=== PATIENT | female | born 1945 | race Caucasian/White ===

== ENCOUNTER 2020-05-02 09:24 | Inpatient (IN) ==
[2020-05-02] MEDS ORDERED: SODIUM CHLORIDE 0.9% 250 ML IV PRN (09:31)
[2020-05-02] MEDS ORDERED: PANTOprazole 40 MG in SYRINGE 0 ML IV ONE ×2 (09:31→11:15)
--- NOTE | 2020-05-02 09:52 | XRay Report ---
XR chest 1V portable CLINICAL HISTORY: weakness COMPARISON STUDY: Chest radiograph January 27, 2008. FINDINGS: There is no pneumothorax. Small to moderate right and small left pleural effusions are note d. Extensive left lower lung airspace opacity is noted. There is also right basilar opacity. There is pulmonary vascular congestion. Cardiomediastinal silhouette is stable. IMPRESSION: 1. Small to moderate right and small left pleural effusions. Bibasilar airspace opacities, greater on the left. The findings could reflect atelectasis or consolidation. Radiographic follow-up is recomme nded. 2. Pulmonary vascular congestion. ACT 112: Negative or not required by law. Electronically signed by: Rajesh Johnson M.D. 05/02/2020 9:51 AM
[2020-05-02 09:58] LABS: Hemoglobin 5.2 g/dL (12.0-16.0); Mean Corpuscular Hgb Conc 30.6 g/dL (32-36); Mean Corpuscular Volume 101.2 fL (80-100); Mean Platelet Volume 8.3 fL (7.4-10.4); Nucleated RBC # (auto) 0.08 K/uL (0-0); Nucleated RBC % (auto) 0.4 %; Platelet Count 408 K/uL (130-400); RDW Standard Deviation 63.3 fL (36.4-46.3); Red Blood Count 1.68 M/uL (4.2-5.4); White Blood Count 18.44 K/uL (4.8-10.8)
--- NOTE | 2020-05-02 09:59 | Emergency Department Note ---
Impression & Plan Acute upper gastrointestinal bleeding, Anemia ED Provider Note NAME: FREDY HELMS AGE: 74 SEX: F : 1945 ARRIVES VIA: Ambulance INFORMANT: Patient, ED PROVIDER(S): Zack Interiano DO CHIEF COMPLAINT: Anemia HPI: The patient is a 74-year-old female who presented to the emergency department from inpatient rehab for an evaluation of severe anemia and generalized weakness. The patient has noticed dropping hemoglobin by outpatient laboratory draws. She states that she did not have a rectal exam and reported no rectal bleeding. She is postop from a hysterectomy. She denies having any abdominal pain nausea or vomiting. She does complain of significant dyspnea on exertion. She denies having any fevers or cough. She denies having any unilateral weakness. The patient states her symptoms are moderate. She is wors ened with exertion and notices dyspnea on exertion as well. ROS: See above HPI for pertinent positives & negatives. A total of 10 systems reviewed and were otherwise negative. PAST MEDICAL HISTORY: See Below PAST SURGICAL HISTORY: See Below FAMILY HISTORY: See Below SOCIAL HISTORY: See Below HOME MEDICATIONS: See Below ALLERGIES: See Below VITALS: See Below PHYSICAL EXAMINATION: GENERAL: Patient is awake alert in no acute distress patient is resting comfortably and showing no signs of anxiety EYES: The conjunctivae are clear. The pupils are round and reactive. EARS, NOSE, MOUTH AND THROAT: The nose is without any evidence of any deformity. Mucous membranes are moist. Tongue is midline. NECK: The neck is nontender and supple. RESPIRATORY: Normal respiratory effort is noted there is no evidence of wheezing rhonchi or rales CARDIOVASCULAR: Tachycardic rate with regular rhythm was noted. GASTROINTESTINAL: The abdomen was moderately distended. Postoperative sites are noted in the abdomen. There is no tenderness guarding noted. The abdominal wounds are healing well. Rectal exam revealed black stool which was strongly positive. MUSCULOSKELETAL/EXTREMITIES: There is no evidence of gross deformity full range of motion is noted in the hips and shoulders. SKIN: There is no obvious evidence of any rash. Pedal edema was noted bilaterally. NEUROLOGIC: Patient is awake alert and oriented x3. MEDICAL DECISION MAKING: The patient is a 74-year-old female who presented to the emergency department for an evaluation of generalized weakness. She has been noted to have falling hemoglobins on serial examinations at [facility] where the patient is currently out for inpatient rehab. The patient was sent to the emergency department today because of a significant drop in hemoglobin. Rectal exam revealed black stool which was strongly heme positive. She has a known history of peptic ulcer disease. The patient was ordered blood transfusion in the emergency department. I discussed the patient's laboratory and radiographic studies with her. I also discussed this case with the on-call [facility] hospitalist. The patient's abdomen did not appear to be consistent with an acute abdominal process. Her wounds appear to be healing well. Triage Nursing notes reviewed. Prior medical records reviewed Vital Signs: reviewed and remarkable for elevated blood pressure Differential diagnosis: Infection, dehydration, metabolic abnormality, hypo/hyperglycemia, electrolyte disturbance, anemia, hypoxia, cardiac sources, intracerebral event, toxicologic, neurologic, as well as other pathologies. ER treatment provided: See below Diagnostics interpreted by me: ECG: EKG was obtained in the emergency department. My interpretation is sinus tachycardia at 105 bpm. There is no ectopy. Diffuse T wave flattening was noted. This was compared to a tracing from February 142019. The T wave abn ormalities are new compared to the earlier tracing. Cardiac Monitoring: An order was placed for continuous cardiac monitoring. The monitor shows a rate of 115 bpm with sinus tachycardia rhythm. Laboratory studies: As stated above and show below. Imaging studies: See below Consultation(s): I discussed this case with the on-call [facility] hospitalist, Dr. Dominique. ED COURSE: Procedures: none PDMP:reviewed and no issues Critical Care: I have personally spent greater than 55 minutes of critical care time in the direct management of this patient. This includes bedside care, interpretation of diagnostic studies, and testing, discussion with consultants, patient, and family members, and other required patient management activities. This 55 minutes is in excess of all separately billable procedures. Past Med/Surg History Medical History Borderline hypertension no meds Diverticular disease Glaucoma Hyperlipidemia no meds Osteoarthritis Prediabetes Urinary leakage Uterine polyp Vaginal bleeding Surgical History History of bowel resection r/t diverticular disease History of carpal tunnel release Left History of cervical polypectomy History of colostomy History of colostomy reversal History of hysterectomy for cancer History of resection of small bowel Hx of carpal tunnel repair Slow to wake up after anesthesia Family History Father Diabetes Mother Liver cancer Myocardial infarction Other Diverticulitis Denies family history of Ovarian cancer Prostate cancer Breast cancer Colorectal cancer Social History Smoking Status: Former smoker Second Hand Exposure: No; Do You Dip or Chew Tobacco: No; Tobacco Cessation Education Requested by Patient: No Hx Alcohol Use: No Hx Substance Use: No Preferred Language: Mexican Communication Ability: Effective Visual Impairment: No Limitations Hearing Ability: Normal [employer] Required: No Beliefs That Will Affect Care: None marital status: widowe Current Living Situation: Rehab current occupational status: employed Other Information That Helps Us Care for You: No Feels Safe at Home: Yes Childhood Exposure to Second-Hand Smoke: No Dental Care, Regularly: Yes Seatbelt Use: sometimes Sunscreen Use: Yes Allergies Allergies Allergy/AdvReac Type Severity Reaction Status Date / Time morphine Allergy Mild ITCHING Verified 05/02/20 10:21 Penicillins Allergy Mild RASH Verified 05/02/20 10:21 tazobactam Allergy Mild RASH Verified 05/02/20 10:21 Home Meds Home Medications Medication Instructions Recorded Confirmed dorzolamide-timolol 1 drp OPB BID 11/05/19 05/02/20 latanoprost 1 drp OPB QPM 11/05/19 05/02/20 amlodipine 2.5 mg PO DAILY@0900 05/02/20 05/02/20 docusate sodium [Colace] 100 mg PO DAILY@1700 05/02/20 05/02/20 enoxaparin [Lovenox] 100 mg SUBCUT BID 05/02/20 05/02/20 moxifloxacin 400 mg PO QAM 05/02/20 05/02/20 pantoprazole 40 mg PO DAILY@0500 05/02/20 05/02/20 Results & Data (ED) Vital Signs Vital Signs - 24 hr 05/02/20 09:31 05/02/20 09:48 05/02/20 10:00 Temperature 36.8 C Temperature Source Oral Pulse Rate 110 H 107 H 107 H Pulse Rate from SpO2 Sensor 107 H 107 H Respiratory Rate 18 21 19 Respiratory Effort / Characteristics Non-Labored Spontaneous Respiratory Depth Normal Blood Pressure 170/59 H 155/47 H 135/61 Blood Pressure Mean 96 65 89 Pulse Oximetry 94 96 97 Oxygen Delivery Method Room Air Room Air Sepsis Recent Fever Within 48 Hours No Sepsis New/Unexplained Change in Mental Status No Sepsis Action Taken by Nursing No Action Required 05/02/20 10:30 Temperature Temperature Source Pulse Rate 103 H Pulse Rate from SpO2 Sensor 103 H Respiratory Rate 19 Respiratory Effort / Characteristics Respiratory Depth Blood Pressure 146/60 H Blood Pressure Mean 71 Pulse Oximetry 93 Oxygen Delivery Method Sepsis Recent Fever Within 48 Hours Sepsis New/Unexplained Change in Mental Status Sepsis Action Taken by Shelter Medications Current Medication List: was personally reviewed by me Laboratory Data Attestation: I reviewed the patient's lab results. Result diagrams: 05/02/20 09:40 05/02/20 09:40 Lab Results 05/02/20 05/02/20 05/02/20 Range/Units 09:40 09:40 09:40 WBC 18.44 H (4.8-10.8) K/uL RBC 1.68 L (4.2-5.4) M/uL Hgb 5.2 L* (12.0-16.0) g/dL Hct 17.0 L* (37-47) % MCV 101.2 H (80-100) fL MCH 31.0 (25-34) pg MCHC 30.6 L (32-36) g/dL RDW Std Deviation 63.3 H (36.4-46.3) fL RDW Coeff of Susannah 18.0 H (11.5-14.5) % Plt Count 408 H (130-400) K/uL MPV 8.3 (7.4-10.4) fL Immature Gran % (Auto) 1.0 % Neut % (Auto) 80.4 % Lymph % (Auto) 12.1 % Allen % (Auto) 6.3 % Eos % (Auto) 0.1 % Baso % (Auto) 0.1 % Reticulocyte % (Auto) 17.5 H (0.5-2.0) % Neut # (Auto) 14.81 H (1.4-6.5) K/uL Lymph # (Auto) 2.24 (1.2-3.4) K/uL Allen # (Auto) 1.17 H (0.11-0.59) K/uL Eos # (Auto) 0.01 (0-0.5) K/uL Baso # (Auto) 0.02 (0-0.2) K/uL Reticulocyte # 0.29 H (0.02-0.10) 10^6/uL Immature Gran # (Auto) 0.19 H (0.00-0.02) K/uL Absolute Nucleated RBC 0.08 H (0-0) K/uL Nucleated RBC % (auto) 0.4 % Polychromasia 1+ Anisocytosis Present PT 11.3 (9.0-12.0) Seconds INR 1.1 (0.9-1.1) APTT 31.2 H (21.0-31.0) Seconds PTT Ratio 1.1 Sodium (136-145) mmol/L Potassium (3.5-5.1) mmol/L Chloride (98-107) mmol/L Carbon Dioxide (21-32) mmol/L Anion Gap (3-11) BUN (7-18) mg/dl Creatinine (0.6-1.2) mg/dl Est Cr Clr Drug Dosing Est GFR ( Amer) Est GFR (Non-Af Amer) BUN/Creatinine Ratio (10-20) Glucose (70-99) mg/dl Calcium (8.5-10.1) mg/dl Magnesium (1.8-2.4) mg/dl Total Bilirubin (0.2-1) mg/dl AST (15-37) U/L ALT (12-78) U/L Alkaline Phosphatase (45-117) U/L Troponin I (0-0.045) ng/ml Total Protein (6.4-8.2) gm/dl Albumin (3.4-5.0) gm/dl Globulin (2.5-4.0) gm/dl Albumin/Globulin Ratio (0.9-2) TSH (0.300-4.500) uIu/ml Free T4 (0.8-1.6) ng/dl Blood Type AB Positive Blood Type Recheck Antibody Screen NEGATIVE Crossmatch See Detail 05/02/20 05/02/20 Range/Units 09:40 10:19 WBC (4.8-10.8) K/uL RBC (4.2-5.4) M/uL Hgb (12.0-16.0) g/dL Hct (37-47) % MCV (80-100) fL MCH (25-34) pg MCHC (32-36) g/dL RDW Std Deviation (36.4-46.3) fL RDW Coeff of Susannah (11.5-14.5) % Plt Count (130-400) K/uL MPV (7.4-10.4) fL Immature Gran % (Auto) % Neut % (Auto) % Lymph % (Auto) % Allen % (Auto) % Eos % (Auto) % Baso % (Auto) % Reticulocyte % (Auto) (0.5-2.0) % Neut # (Auto) (1.4-6.5) K/uL Lymph # (Auto) (1.2-3.4) K/uL Allen # (Auto) (0.11-0.59) K/uL Eos # (Auto) (0-0.5) K/uL Baso # (Auto) (0-0.2) K/uL Reticulocyte # (0.02-0.10) 10^6/uL Immature Gran # (Auto) (0.00-0.02) K/uL Absolute Nucleated RBC (0-0) K/uL Nucleated RBC % (auto) % Polychromasia Anisocytosis PT (9.0-12.0) Seconds INR (0.9-1.1) APTT (21.0-31.0) Seconds PTT Ratio Sodium 140 (136-145) mmol/L Potassium 4.0 (3.5-5.1) mmol/L Chloride 108 H (98-107) mmol/L Carbon Dioxide 25 (21-32) mmol/L Anion Gap 7.0 (3-11) BUN 23 H (7-18) mg/dl Creatinine 0.67 (0.6-1.2) mg/dl Est Cr Clr Drug Dosing Not Reportable Est GFR ( Amer) 100.4 Est GFR (Non-Af Amer) 86.6 BUN/Creatinine Ratio 34.9 H (10-20) Glucose 180 H (70-99) mg/dl Calcium 8.1 L (8.5-10.1) mg/dl Magnesium 2.1 (1.8-2.4) mg/dl Total Bilirubin 0.2 (0.2-1) mg/dl AST 20 (15-37) U/L ALT 12 (12-78) U/L Alkaline Phosphatase 54 (45-117) U/L Troponin I < 0.015 (0-0.045) ng/ml Total Protein 5.6 L (6.4-8.2) gm/dl Albumin 1.8 L (3.4-5.0) gm/dl Globulin 3.8 (2.5-4.0) gm/dl Albumin/Globulin Ratio 0.5 L (0.9-2) TSH 5.890 H (0.300-4.500) uIu/ml Free T4 1.33 (0.8-1.6) ng/dl Blood Type Blood Type Recheck AB Positive Antibody Screen Crossmatch Administered Medications Docusate Sodium (Docusate Sodium 100 Mg Cap) 100 mg PO DAILY@1700 [facility] Stop: 06/01/20 16:59 Last Admin: 05/02/20 12:30 Dose: Not Given Documented by: [id number] Pantoprazole Sodium 40 mg/ (Dextrose) 100 mls @ 20 mls/hr IV Q5H [facility] Stop: 06/01/20 11:29 Last Admin: 05/02/20 11:44 Dose: 8 mg/hr, 20 mls/hr Documented by: [id number] Sodium Chloride (Nss 1000ml) 1,000 mls @ 15 mls/hr IV .Q24H [facility] Stop: 05/03/20 13:59 Last Admin: 05/02/20 14:31 Dose: Not Given Documented by: [id number] Discontinued Medications Pantoprazole Sodium 40 mg/ (Syringe) 10 mls @ 5 mls/min IV NOW ONE Stop: 05/02/20 09:32 Last Admin: 05/02/20 10:04 Dose: 5 mls/min Documented by: [id number] Pantoprazole Sodium 40 mg/ (Syringe) 10 mls @ 5 mls/min IV NOW ONE Stop: 05/02/20 11:16 Last Admin: 05/02/20 11:44 Dose: 5 mls/min Documented by: [id number] Ioversol (Ioversol 100ml) 94 ml IV ONCE ONE Stop: 05/02/20 13:37 Last Admin: 05/02/20 13:36 Dose: 94 ml Documented by: [id number] Imaging Data Radiologist's Impression: XR chest 1V portable CLINICAL HISTORY: weakness COMPARISON STUDY: Chest radiograph January 27, 2008. FINDINGS: There is no pneumothorax. Small to moderate right and small left pleural effusions are noted. Extensive left lower lung airspace opacity is noted. There is also right basilar opacity. There is pulmonary vascular congesti on. Cardiomediastinal silhouette is stable. IMPRESSION: 1. Small to moderate right and small left pleural effusions. Bibasilar airspace opacities, greater on the left. The findings could reflect atelectasis or consolidation. Radiographic follow-up is recommended. 2. Pulmonary vascular congestion. ACT 112: Negative or not required by law. Electronically signed by: Rajesh Johnson M.D. 05/02/2020 9:51 AM Dictated: 05/02/20948 Transcribed: 05/02/20948 Blood Pressure Blood Pressure Findings: Elevated blood pressure Blood Pressure Disposition: further management by hospitalist Discharge Plan Visit Data Chief Complaint: Abnormal Labs/Diagnostic Testing ED Provider: Zack Interiano Discharge Problem: Acute upper gastrointestinal bleeding, Anemia Patient Disposition: Admitted As Inpatient Condition: Good Discharge Instructions Interventions: ED Discharge Assessment Last Done: 05/02/20 11:15
[2020-05-02 10:03] LABS: INR 1.1 (0.9-1.1); Partial Thromboplastin Ratio 1.1; Partial Thromboplastin Time 31.2 Seconds (21.0-31.0); Prothrombin Time 11.3 Seconds (9.0-12.0)
[2020-05-02 10:08] LABS: Alanine Aminotransferase 12 U/L (12-78); Albumin Level 1.8 gm/dl (3.4-5.0); Aspartate Aminotransferase 20 U/L (15-37); BUN Creatinine Ratio 34.9 (10-20); Blood Urea Nitrogen 23 mg/dl (7-18); Calcium 8.1 mg/dl (8.5-10.1); Carbon Dioxide 25 mmol/L (21-32); Chloride 108 mmol/L (98-107); Est GFR (African American) 100.4; Est GFR (Non-African American) 86.6; Glucose 180 mg/dl (70-99); Magnesium 2.1 mg/dl (1.8-2.4); Sodium 140 mmol/L (136-145)
[2020-05-02 10:09] LABS: Anisocytosis Present; Basophils # (auto) 0.02 K/uL (0-0.2); Basophils % (auto) 0.1 %; Eosinophils # (auto) 0.01 K/uL (0-0.5); Eosinophils % (auto) 0.1 %; Immature Granulocytes # (auto) 0.19 K/uL (0.00-0.02); Lymphocytes # (auto) 2.24 K/uL (1.2-3.4); Lymphocytes % (auto) 12.1 %; Monocytes # (auto) 1.17 K/uL (0.11-0.59); Monocytes % (auto) 6.3 %; Neutrophils # (auto) 14.81 K/uL (1.4-6.5); Neutrophils % (auto) 80.4 %; Polychromasia 1+; Reticulocyte % 17.5 % (0.5-2.0); Reticulocytes # 0.29 10^6/uL (0.02-0.10)
[2020-05-02 10:18] LABS: Albumin Globulin Ratio 0.5 (0.9-2); Alkaline Phosphatase 54 U/L (45-117); Bilirubin,Total 0.2 mg/dl (0.2-1); Globulin 3.8 gm/dl (2.5-4.0); Total Protein 5.6 gm/dl (6.4-8.2); Troponin I < 0.015 ng/ml (0-0.045)
[2020-05-02 10:31] LABS: T4 Free Thyroxine 1.33 ng/dl (0.8-1.6)
--- NOTE | 2020-05-02 11:23 | History & Physical Report ---
Date of Service May 02, 2020 Assessment & Plan (1) Acute GI bleeding: Recent EGD with duodenal ulcers. Discussed with gastroenterology at [facility] and given no plans to repeat endoscopy will consult GI, Start intravenous Protonix drip, Transfuse 4 units and repeat H&H after this. If hemodynamically unstable will give protamine since lovenox as last dose this morning at 5am, otherwise will just hold further doses of this. (2) HTN (hypertension): Hold amlodipine in setting of acute GI bleed as above. (3) Status post laparoscopic hysterectomy: Repeat CT A/P with IV contrast to rule out alternative cause of acute blood loss, Resolution of hematoma. (4) DVT (deep venous thrombosis): Recent diagnosis of this. Certainly risk of anticoagulation at present outweighs any benefit. No known PE but will request [place] [facility] [place] see if this was assessed. Request US venous doppler [place] [facility]. (5) Endometrial cancer, grade I: Status post laparoscopic robotic hysterectomy and bilateral salpingo- oophorectomy 03/30/2020. No plans of chemotherapy as per patient. (6) Small bowel perforation: Recent history of this requiring jejunal-Jejunal anastomosis. No current abdominal pain, nausea or vomiting. Repeat CT abdomen pelvis to reassess. (7) Paroxysmal A-fib: In setting of sepsis requiring. Monitor on telemetry for this. Admission and Anticipated Discharge Date Admission Date: 05/02/2020 History of Present Illness Chief Complaint: Severe anemia, fatigue Primary Care Provider: Zack Baig MD Candy Zaman is a 74-year-old female with complex recent medical history summarized below who presents to the ER from [facility] with severe anemia Hgb 4.7 and associated fatigue and dizziness. She has a complex recent medical history starting with a laparoscopic robotic hysterectomy with bilateral Salpingo-oophorectomy performed [place] [facility] [place] 30, 2020. Her postoperative period was complicated by [place], postoperative ileus, Subcutaneous emphysema, left rectus hematoma, wound dehiscence and bilateral pleural effusions. She required ICU admission approximately 6 days post-operatively due to worsening [place] and subsequent diagnosis of small bowel perforation s/p small bowel resection with jejunal-Jejunal anastomosis, E. coli bacteremia and intubation for acute hypoxic respiratory failure. In the ICU she developed acute peroneal vein DVT and new onset atrial fibrillation requiring amiodarone drip and was started on systemic anticoagulation. She was discharged to [facility] on April 14. She was readmitted on April 21 due to anemia and transfused a total of 4 units. She was noted to have duodenal ulcers on her EGD and suspected bleeding to be from this due to ongoing melanocytic stool. Her Lovenox was continued after EGD was performed. The patient reports her melanic stools have not stopped since her original operation but her memory of this time is limited. She has been getting increasingly fatigued and dizzy over the last 2 days. Large increase in melanic stools noted by [facility] yesterday and subsequent hemoglobin dropped from 7.9 on March 30 to 4.7 today. Last lovenox dose was this morning at 5am. Allergies Allergy/AdvReac Type Severity Reaction Status Date / Time morphine Allergy Mild ITCHING Verified 05/02/20 10: Penicillins Allergy Mild RASH Verified 05/02/20 10:21 tazobactam Allergy Mild RASH Verified 05/02/20 10: Home Medications Home Medications Medication Instructions Recorded Confirmed Type dorzolamide-timolol 1 drp OPB BID 11/05/19 05/02/20 History latanoprost 1 drp OPB QPM 11/05/19 05/02/20 History amlodipine 2.5 mg PO DAILY@0900 05/02/20 05/02/20 History docusate sodium [Colace] 100 mg PO DAILY@1700 05/02/20 05/02/20 History enoxaparin [Lovenox] 100 mg SUBCUT BID 05/02/20 05/02/20 History moxifloxacin 400 mg PO QAM 05/02/20 05/02/20 History pantoprazole 40 mg PO DAILY@0500 05/02/20 05/02/20 History Past Med/Surg History Medical History Borderline hypertension no meds Diverticular disease Glaucoma Hyperlipidemia no meds Osteoarthritis Prediabetes Urinary leakage Uterine polyp Vaginal bleeding Surgical History History of bowel resection r/t diverticular disease History of carpal tunnel release Left History of cervical polypectomy History of colostomy History of colostomy reversal History of hysterectomy for cancer History of resection of small bowel Hx of carpal tunnel repair Slow to wake up after anesthesia Family History Father Diabetes Mother Liver cancer Myocardial infarction Other Diverticulitis Denies family history of Ovarian cancer Prostate cancer Breast cancer Colorectal cancer Social History Smoking Status: Former smoker Second Hand Exposure: No; Do You Dip or Chew Tobacco: No; Tobacco Cessation Education Requested by Patient: No Hx Alcohol Use: No Hx Substance Use: No Preferred Language: Guamanian Communication Ability: Effective Visual Impairment: No Limitations Hearing Ability: Normal Q[employer] Tester Required: No Beliefs That Will Affect Care: None marital status: widowe Current Living Situation: Rehab current occupational status: employed Other Information That Helps Us Care for You: No Feels Safe at Home: Yes Childhood Exposure to Second-Hand Smoke: No Dental Care, Regularly: Yes Seatbelt Use: sometimes Sunscreen Use: Yes Review of Systems Review of Systems: All systems reviewed & are unremarkable except as noted in HPI & below Physical Exam Constitutional: well developed; + not well nourished and no acute distress Eyes: + conjunctival abnormality (pale) ENMT: external ear and nose normal, oropharynx normal Respiratory: normal respiratory effort, lungs clear to auscultation Cardiovascular: Rate/Rhythm: regular rhythm and + tachycardic Heart Sounds: no murmur Vessels: no JVD Extremities: normal capillary refill (prolonged peripherally 6-7s no central cyanosis) and + pedal edema (wrapped legs limiting exam, 1+ b/l equal to knees); no calf tenderness Gastrointestinal (Abdomen): Inspection/Auscultation: + abdomen distended and normal bowel sounds; + abdomen abnormal to inspection (dressed wounds without significant tenderness surrounding them or ecchymosi) Percussion/Palpation: abdomen soft; abdomen nontender, no guarding and abdomen not rigid Skin: no rashes, warm and dry Neurologic: moves all extremities and awake; not confused Psychiatric: A+Ox3, euthymic affect Genitourinary: no CVA tenderness Results & Data Results & Data ([facility]) Vital Signs (Past 12 Hours) Vital Signs Temp Pulse Resp BP Pulse Ox 05/02/20 11:00 104 H 17 139/61 94 05/02/20 10:30 103 H 19 146/60 H 93 05/02/20 10:00 107 H 19 135/61 97 05/02/20 09:48 107 H 21 155/47 H 96 05/02/20 09:31 36.8 C 110 H 18 170/59 H 94 Diagnostic Findings XR chest 1V portable IMPRESSION: 1. Small to moderate right and small left pleural effusions. Bibasilar airspace opacities, greater on the left. The findings could reflect atelectasis or consolidation. Radiographic follow-up is recommended. 2. Pulmonary vascular congestion. ECG Indication: other Rate (beats per minute): 105 Rhythm: sinus tachycardia Findings: + other (T wave flattenening in inferior lateral leads) Comparison ECG Date: from (02/15/2020) Change: the following changes noted (T wave flattening is new) Code Status & VTE Plan Code Status DNR in the event of a cardiac arrest but ok for ventilation in event of respiratory arrest VTE Prophylaxis Plan VTE Prophylaxis will be ordered: Yes PG Care Time/CCT Total # of Minutes Spent Total Time Spent with Patient: Total time spent is greater than 50% in coordination of care (as documented) at patient's floor/unit and/or counseling patient: Coding Level of Care Code 33582 Initial Inpt Care Lvl 3 Diagnoses Acute GI bleeding K92.2 HTN (hypertension) I10 Status post laparoscopic hysterectomy Z90.710 DVT (deep venous thrombosis) I82.409 Endometrial cancer, grade I C54.1 Small bowel perforation K63.1 Paroxysmal A-fib I48.0
[2020-05-02] MEDS ORDERED: ACETAMINOPHEN 325 MG TAB PO PRN (11:42)
[2020-05-02] MEDS ORDERED: ONDANSETRON INJ 2 MG/ML 2 ML VIAL IV PRN (11:42)
[2020-05-02] MEDS: PANTOprazole 40 MG in DEXTROSE 5% 100 ML IV SCH ×3 (11:44→23:07)
[2020-05-02] MEDS: DOCUSATE SODIUM 100 MG CAP PO SCH (12:30)
[2020-05-02] MEDS ORDERED: IOVERSOL 100ml IV ONE (13:36)
[2020-05-02] MEDS ORDERED: SODIUM CHLORIDE 0.9% 1000ML 1,000 ML IV SCH (14:00)
--- NOTE | 2020-05-02 14:22 | CT Scan Report ---
CT SCAN OF THE ABDOMEN AND PELVIS WITH IV CONTRAST CLINICAL HISTORY: Anemia. Recent surgery. COMPARISON STUDY: Abdominal CT dated 01/28/2008. TECHNIQUE: Following the IV administration of 94 cc of Optiray 320, CT scan of the abdomen and pelvi s is performed from the lung bases to the proximal femora. Images are reviewed in the axial, sagittal , and coronal planes. IV contrast was administered without complication. A dose lowering technique wa s utilized adhering to the principles of ALARA. CT DOSE: 1129.23 mGycm FINDINGS: Lung bases: The heart is normal in size noting a small pericardial effusion. There are coronary arter y calcifications. There are small to moderate pleural effusions with bibasilar consolidation. Liver: The contrast-enhanced liver is normal in size, contour, and attenuation. There is a large low- attenuation subcapsular collection scalloping the posterolateral right lobe of liver, best seen on ax ial image #140. This measures approximately 14 x 13 x 7.5 cm. A similar-appearing subcapsular collect ion along the lateral left lobe on image #119 measures approximately 6 x 17 x 7.5 cm. This extends be yond the liver, with a loculation along the superior medial aspect of the spleen on image #132. This component measures 4.5 x 2.0 cm. A loculation this collection also extends inferiorly along the under surface of the left lobe on image #179 measuring approximately 2.5 x 6 cm in axial dimension. This ma y be contiguous with an additional collection along the superior aspect of the greater curvature the stomach seen on image #167. This measures approximately 6 x 2 cm. There is no intrahepatic biliary du ctal dilatation. The hepatic veins and portal veins are patent. The right lobe cyst measuring 3.8 cm as seen on image #86. Gallbladder: Unremarkable. Spleen: Normal in size and attenuation. Pancreas: Unremarkable. Adrenal glands: Unremarkable. Kidneys: The contrast enhanced kidneys are normal in size and without hydronephrosis. The kidneys enh ance symmetrically. Abdominal vasculature: The abdominal aorta is normal in course and caliber noting moderate atheroscle rotic calcification. Bowel: There is postoperative change from sigmoid colon resection, as well as resection in the ileoce josué region. No bowel obstruction is identified. 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 A fistulous tract is suggested extending from the greater curvature of the stomach on image #193 into the left midabdomen. An additional fistulous tract in the left lower quad rant is suggested on image #227. A fistulous tract in the left upper quadrant suggests on image #172. The appendix is not identified and presumed surgically absent. Peritoneum: There is no intraperitoneal free air or abdominal ascites. Lymphadenopathy: None. Pelvic viscera: The bladder is normal as visualized. The uterus is surgically absent. No adnexal lesi on is seen. There is no retroperitoneal hemorrhage. Skeletal structures: The skeletal structures are osteopenic. There is mild lumbosacral spondylosis. S clerotic change is seen in the sacroiliac joints. No lytic or blastic lesions are seen. Soft tissues: There is a midline surgical scar. Subcutaneous fluid is noted deep to the incision site . This measures up to 2.5 cm in depth and 1 cm in diameter as seen on image #393. There is body wall edema. A loculated collection within the left ventral abdominal wall on image #206 measures 1.3 x 3.6 cm. IMPRESSION: 1. Small to moderate pleural effusions with bibasilar consolidation. This likely represents atelectas is and clinical correlation will be required. 2. There are large subcapsular hepatic collections as detailed above. Top differential considerations include hepatic abscesses versus liquefied hematomas. 3. The largest collection along the left lobe of the liver extends beyond the liver, and involves the superior and posterior aspect of the spleen. This is also likely contiguously with a collection janine g the greater curvature of the stomach. 4. Postoperative change is consistent with previous bowel resections. 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 5. A fistulous tract is also suggested arising from the stomach and extending in the left lower quadr ant. Additional intra-abdominal fistula tracts are suspected in the left upper and left lower quadran t. 6. No intraperitoneal free air is seen. 7. Body wall edema. 8. Loculated fluid is present within the ventral abdominal wall deep to the incision site. An additio nal small loculated collection is seen in the left upper quadrant abdominal wall, possibly at a lapar oscopy port. 9. Additional findings as above. ACT 112: Negative or not required by law. Electronically signed by: Tyler Higuera M.D. 05/02/2020 2:21 PM
--- NOTE | 2020-05-02 14:55 | Consultation Report ---
DATE OF CONSULTATION: 05/02/2020 GASTROINTESTINAL CONSULT NOTE REASON FOR EVALUATION: Severe anemia. HISTORY OF PRESENT ILLNESS: The patient is a 74-year-old woman who underwent a robotic hysterectomy and bilateral salpingo-oophorectomy on 03/[address] [facility] for stage I endometrial cancer. Six days later, she was readmitted for small bowel perforation and had to have a jejunal resection with a jejunojejunal anastomosis. She had E. coli bacteremia, some respiratory failure and developed a left peroneal vein DVT and new-onset atrial fibrillation. She was started on amiodarone drip and Lovenox anticoagulation. She was discharged to rehab and has been having a little bit of melena. During her last admission at [place], she was endoscoped and found to have some superficial duodenal ulcers. The small bowel was entered for 75 cm, but the jejunal anastomosis could not be reached and no obvious acute source of blood loss was identified. Today, the patient was complaining of severe fatigue and her hemoglobin was noted to have dropped from 7.9 on 03/30 down to 4.7 today and she was referred for admission. She has gotten 1 out of 4 units that have been ordered and endoscopic evaluation has been requested. Prior to having the endoscopy, the patient underwent a CAT scan to look for other potential sources of blood loss and her CT scan has shown significant large subcapsular hematomas of the right and left lobes of the liver, spleen and stomach. She also has bilateral pleural effusions. It is not clear whether this represents fluid or blood, but given the amount of drop in blood count, it is likely that this is bleeding. Her Lovenox has been discontinued. The endoscopy has been canceled and we are recommending transfer to [place] for further care. PAST MEDICAL HISTORY: Remarkable for her endometrial cancer, hypertension, diverticulosis, hyperlipidemia, prediabetes. PAST SURGICAL HISTORY: She had a previous bowel resection for diverticular disease. She had a colostomy with reversal. She had a hysterectomy, small bowel resection, carpal tunnel operation. HOME MEDICATIONS: Dorzolamide, timolol, latanoprost, amlodipine, docusate, Lovenox, moxifloxacin and pantoprazole. ALLERGIES: MORPHINE, PENICILLIN AND TAZOBACTAM. FAMILY HISTORY: Father has diabetes. Mother, liver cancer and myocardial infarction. SOCIAL HISTORY: She lives alone. She is employed. She is a . She drinks about 4 alcohol drinks per month. She does not smoke, but received secondhand smoke from her . REVIEW OF SYSTEMS: Positive for extreme fatigue. She denies any abdominal pain or leg pain or shortness of breath. PHYSICAL EXAMINATION: GENERAL: The patient appears acutely and chronically ill, somewhat pale. ABDOMEN: Shows fresh incisions that are healing. No evidence of infection or dehiscence. EXTREMITIES: There is no swelling or tenderness in the left or right calf. IMPRESSION AND PLAN: The patient has severe anemia with large fluid collections in the abdomen, especially in the subcapsular areas of the liver, spleen, wall of the stomach and bilateral pleural effusions. Her endoscopy is being canceled and we are seeking transfer back to [facility] for ongoing care. Obviously, her Lovenox has been held, but she did receive a dose at home this morning.
[2020-05-02] MEDS: CEFEPIME 2,000 MG in SYRINGE 7.5 ML IV SCH ×2 (17:06→23:47)
[2020-05-02] MEDS: metroNIDAZOLE 500 MG/100 ML BAG IV SCH ×2 (17:06→23:47)
[2020-05-02] MEDS: LATANOPROST 0.005% OP SOLN 2.5 ML BTL OPB SCH (20:09)
[2020-05-02] MEDS: DORZOLAMIDE/TIMOLOL 22.3/6.8MG/ML 10 ML BTL OPB SCH (20:09)
--- NOTE | 2020-05-02 22:52 | Electrocardiogram Report ---
Test Reason : Blood Pressure : / mmHG Vent. Rate : 105 BPM Atrial Rate : 105 BPM P-R Int : 138 ms QRS Dur : 078 ms QT Int : 338 ms P-R-T Axes : 037 020 025 degrees QTc Int : 446 ms Sinus tachycardia Cannot rule out Anterior infarct , age undetermined Nonspecific T wave abnormality Abnormal ECG When compared with ECG of 15-FEB-2020 11:11, Vent. rate has increased BY 45 BPM Nonspecific T wave abnormality now evident in Inferior leads Nonspecific T wave abnormality, worse in Anterolateral leads Confirmed by Alex Gaston ([id number]) on 05/02/2020 10:52:17 PM Referred By: Confirmed By:Alex Gaston
[2020-05-03 00:39] LABS: Hematocrit (blood only) 28.4 % (37-47); Hemoglobin 9.6 g/dL (12.0-16.0)
[2020-05-03] MEDS: PANTOprazole 40 MG in DEXTROSE 5% 100 ML IV SCH ×4 (03:42→18:53)
[2020-05-03 05:52] LABS: Basophils # (auto) 0.07 K/uL (0-0.2); Basophils % (auto) 0.3 %; Eosinophils # (auto) 0.06 K/uL (0-0.5); Eosinophils % (auto) 0.3 %; Hematocrit (blood only) 25.4 % (37-47); Hemoglobin 8.5 g/dL (12.0-16.0); Immature Granulocytes # (auto) 0.55 K/uL (0.00-0.02); Immature Granulocytes % (auto) 2.7 %; Lymphocytes # (auto) 2.77 K/uL (1.2-3.4); Lymphocytes % (auto) 13.4 %; Mean Corpuscular Hgb Conc 33.5 g/dL (32-36); Mean Corpuscular Volume 92.7 fL (80-100); Mean Platelet Volume 8.6 fL (7.4-10.4); Monocytes # (auto) 1.51 K/uL (0.11-0.59); Monocytes % (auto) 7.3 %; Neutrophils # (auto) 15.68 K/uL (1.4-6.5); Nucleated RBC # (auto) 0.82 K/uL (0-0); Platelet Count 254 K/uL (130-400); Red Blood Count 2.74 M/uL (4.2-5.4); White Blood Count 20.64 K/uL (4.8-10.8)
[2020-05-03 06:16] LABS: Polychromasia 1+
[2020-05-03 06:27] LABS: Albumin Level 1.7 gm/dl (3.4-5.0); BUN Creatinine Ratio 53.8 (10-20); Calcium 7.7 mg/dl (8.5-10.1); Creatinine Clr Calc Pharmacy 105.4 ml/min; Est GFR (African American) 106.5; Est GFR (Non-African American) 91.9; Potassium 4.2 mmol/L (3.5-5.1)
[2020-05-03 06:39] LABS: Albumin Globulin Ratio 0.5 (0.9-2); Bilirubin,Total 1.2 mg/dl (0.2-1); Globulin 3.2 gm/dl (2.5-4.0); Total Protein 4.9 gm/dl (6.4-8.2)
[2020-05-03] MEDS: CEFEPIME 2,000 MG in SYRINGE 7.5 ML IV SCH ×2 (07:47→16:18)
[2020-05-03] MEDS: DORZOLAMIDE/TIMOLOL 22.3/6.8MG/ML 10 ML BTL OPB SCH ×2 (07:49→20:49)
[2020-05-03] MEDS ORDERED: MOXIFLOXACIN 400 MG PO SCH (09:00)
[2020-05-03] MEDS: metroNIDAZOLE 500 MG/100 ML BAG IV SCH ×2 (09:14→16:19)
[2020-05-03 14:54] LABS: Hematocrit (blood only) 25.5 % (37-47); Hemoglobin 8.5 g/dL (12.0-16.0)
[2020-05-03] MEDS: DOCUSATE SODIUM 100 MG CAP PO SCH (16:19)
[2020-05-03] MEDS: LATANOPROST 0.005% OP SOLN 2.5 ML BTL OPB SCH (20:49)
--- NOTE | 2020-05-03 23:02 | Hospitalist Progress Note ---
Date of Service May 03, 2020 Assessment & Plan (1) Intra abdominal hemorrhage: CT with numerous areas of hematomas, tracks along liver, spleen, curvature of stomach unclear if this is active bleeding, prior blood loss needs to be transferred to [place] for evaluation by gynecological surgical service, consider IR evaluation for bleeding source in the meantime, close monitoring on PCU transfuse if hypotensive or Hb < 7 s/p transfusion of 4 units (2) Acute GI bleeding: Recent EGD with duodenal ulcers evaluated by GI here, no plans for EGD, recommend transfer to [place] with melena all day long Hb up to 8.5 this morning, repeat still 8.5 this afternoon, BP stable repeat Hb in the morning, transfuse if < 7 or if hypotensive (3) HTN (hypertension): Hold amlodipine in setting of acute GI bleed as above. BP elevated today (4) Status post laparoscopic hysterectomy: Repeat CT A/P with IV contrast - hematomas intra-abdominal, numerous fistula tracts (5) DVT (deep venous thrombosis): Recent diagnosis of this. Certainly risk of anticoagulation at present outweighs any benefit. may need IVC filter but could be done at [place] (6) Endometrial cancer, grade I: Status post laparoscopic robotic hysterectomy and bilateral salpingo- oophorectomy 03/30/2020. No plans of chemotherapy as per patient. now with surgical complications (7) Small bowel perforation: Recent history of this requiring jejunal-Jejunal anastomosis. No current abdominal pain, nausea or vomiting. Repeat CT abdomen pelvis to reassess. has intra-abdominal hematomas, possible bleeding, fistula tracts (8) Paroxysmal A-fib: In setting of sepsis requiring. Monitor on telemetry for this. Admission and Anticipated Discharge Date Admission Date: May 02, 2020 Subjective patient laying flat in bed, no distress admits to feeling diaphoretic, mild dyspnea still having melena, has stool incontinence reviewed chart Hb up to 8.5 this morning, repeated this afternoon, still 8.5 BP elevated, tachycardic asked assistant corporate secretary to call [place] this afternoon, they said they would have NO BED S today, hopeful for tomorrow updated patient about situation for time being, continue Cefepime, Flagyl and monitor Hb, transfuse as needed Review of Systems Review of Systems: All systems reviewed & are unremarkable except as noted in Subjective Constitutional: + sweats, + fatigue and + weakness; no fever and no chills Respiratory: + dyspnea; no cough and no wheezing Cardiovascular: no chest pain and no edema Gastrointestinal: + nausea and + melena; no abdominal pain, no vomiting, no constipation and no diarrhea/loose stools Physical Exam Constitutional: well developed, + ill appearing and + frail appearing; no acute distress Eyes: PERRL, conjunctivae normal, anicteric sclerae ENMT: external ear and nose normal, oropharynx normal Neck: trachea midline, no thyromegaly Respiratory: + labored breathing; no cough Auscultation: lungs clear to auscultation bilaterally and + diminished lung sounds (bases) Cardiovascular: Rate/Rhythm: regular rhythm and + tachycardic Heart Sounds: normal S1 and normal S2; no murmur Extremities: normal capillary refill; no edema Gastrointestinal (Abdomen): Inspection/Auscultation: normal bowel sounds; + abdomen abnormal to inspection (numerous fistula tracts) and abdomen not distended Percussion/Palpation: abdomen soft; abdomen nontender, no guarding and abdomen not rigid Musculoskeletal: Head/Neck/Chest: normocephalic, head atraumatic and neck supple Extremities: extremities normal to inspection and + abnormal strength (generalized weakness) Skin: no rashes, warm and dry Neurologic: patellar DTR's 2+ bilat, sensation intact and PERRL, EOMI, accommodation nl, no face palsy, no dysarthria Psychiatric: A+Ox3, euthymic affect Lymphatic: no cervical or axillary lymphadenopathy Results & Data Results & Data ([facility]) Vital Signs (Past 12 Hours) Vital Signs Temp Pulse Pulse Resp BP Pulse Ox 05/03/20 22:24 36.5 C 101 H 19 163/81 H 92 05/03/20 18:58 36.5 C 101 H 19 163/81 H 92 05/03/20 18:37 103 H 05/03/20 15:37 36.9 C 92 H 18 161/73 H 92 05/03/20 11:36 36.4 C L 108 H 22 163/78 H 94 Laboratory Results Laboratory Results - last 24 hr 05/02/20 05/03/20 05/03/20 09:40 00:20 05:34 WBC 20.64 H RBC 2.74 L Hgb 9.6 L D 8.5 L Hct 28.4 L 25.4 L MCV 92.7 D MCH 31.0 MCHC 33.5 RDW Std Deviation 53.0 H RDW Coeff of Susannah 17.0 H Plt Count 254 MPV 8.6 Immature Gran % (Auto) 2.7 Neut % (Auto) 76.0 Lymph % (Auto) 13.4 Stevens % (Auto) 7.3 Eos % (Auto) 0.3 Baso % (Auto) 0.3 Neut # (Auto) 15.68 H Lymph # (Auto) 2.77 Stevens # (Auto) 1.51 H Eos # (Auto) 0.06 Baso # (Auto) 0.07 Immature Gran # (Auto) 0.55 H Absolute Nucleated RBC 0.82 H Nucleated RBC % (auto) 4.0 Polychromasia 1+ Sodium Potassium Chloride Carbon Dioxide Anion Gap BUN Creatinine Est Cr Clr Drug Dosing Est GFR ( Amer) Est GFR (Non-Af Amer) BUN/Creatinine Ratio Glucose Calcium Total Bilirubin AST ALT Alkaline Phosphatase Total Protein Albumin Globulin Albumin/Globulin Ratio Crossmatch See Detail 05/03/20 05/03/20 05:34 14:44 WBC RBC Hgb 8.5 L Hct 25.5 L MCV MCH MCHC RDW Std Deviation RDW Coeff of Susannah Plt Count MPV Immature Gran % (Auto) Neut % (Auto) Lymph % (Auto) Stevens % (Auto) Eos % (Auto) Baso % (Auto) Neut # (Auto) Lymph # (Auto) Stevens # (Auto) Eos # (Auto) Baso # (Auto) Immature Gran # (Auto) Absolute Nucleated RBC Nucleated RBC % (auto) Polychromasia Sodium 141 Potassium 4.2 Chloride 111 H Carbon Dioxide 24 Anion Gap 6.0 BUN 30 H Creatinine 0.56 L Est Cr Clr Drug Dosing 105.4 Est GFR ( Amer) 106.5 Est GFR (Non-Af Amer) 91.9 BUN/Creatinine Ratio 53.8 H Glucose 148 H Calcium 7.7 L Total Bilirubin 1.2 H D AST 19 ALT 11 L Alkaline Phosphatase 44 L Total Protein 4.9 L Albumin 1.7 L Globulin 3.2 Albumin/Globulin Ratio 0.5 L Crossmatch Medications Administered Current Inpatient Medications Acetaminophen (Acetaminophen 325 Mg Tab) 650 mg PO Q4H PRN PRN Reason: Pain or Fever Stop: 06/01/20 11:41 Docusate Sodium (Docusate Sodium 100 Mg Cap) 100 mg PO DAILY@1700 [facility] Stop: 06/01/20 16:59 Last Admin: 05/03/20 16:19 Dose: Not Given Documented by: Dorzolamide/Timolol (Dorzolamide/Timolol 22.3/6.8mg/Ml 10 Ml Btl) [address] [facility] Stop: 06/01/20 20:59 Last Admin: 05/03/20 20:49 Dose: 1 drops Documented by: Pantoprazole Sodium 40 mg/ (Dextrose) 100 mls @ 20 mls/hr IV Q5H [facility] Stop: 06/01/20 11:29 Last Admin: 05/03/20 18:53 Dose: 8 mg/hr, 20 mls/hr Documented by: Cefepime HCl 2,000 mg/ Syringe 20 mls @ 5.5 mls/min IV Q8H [facility]; Protocol Stop: 05/12/20 15:59 Last Admin: 05/03/20 16:18 Dose: 5.5 mls/min Documented by: Metronidazole (Flagyl) 500 mg in 100 mls @ 100 mls/hr IV Q8H [facility]; Protocol Stop: 05/12/20 16:29 Last Infusion: 05/03/20 17:40 Dose: Infused Documented by: Latanoprost (Latanoprost 0.005% Op Soln 2.5 Ml Btl) [address] [facility] Stop: 06/01/20 20:59 Last Admin: 05/03/20 20:49 Dose: 1 drops Documented by: Ondansetron HCl (Ondansetron Inj 2 Mg/Ml 2 Ml Vial) 4 mg IV Q6H PRN PRN Reason: Nausea Stop: 06/01/20 11:41 PG Care Time/CCT Total # of Minutes Spent Total Time Spent with Patient: Total time spent is greater than 50% in coordination of care (as documented) at patient's floor/unit and/or counseling patient: Coding Level of Care Code 25200 Subseq Hosp Care Lvl 3 Diagnoses Intra abdominal hemorrhage R58 Acute GI bleeding K92.2 HTN (hypertension) I10 Status post laparoscopic hysterectomy Z90.710 DVT (deep venous thrombosis) I82.409 Endometrial cancer, grade I C54.1 Small bowel perforation K63.1 Paroxysmal A-fib I48.0
--- NOTE | 2020-05-04 13:35 | Discharge Summary ---
Date of Service May 03, 2020 Admission HPI Per Admitting Provider Candy Zaman is a 74-year-old female with complex recent medical history summarized below who presents to the ER from [facility] with severe anemia Hgb 4.7 and associated fatigue and dizziness. She has a complex recent medical history starting with a laparoscopic robotic hysterectomy with bilateral Salpingo-oophorectomy performed at [facility] on March 30, 2020. Her postoperative period was complicated by [place], postoperative ileus, Subcutaneous emphysema, left rectus hematoma, wound dehiscence and bilateral pleural effusions. She required ICU admission approximately 6 days post-operatively due to worsening [place] and subsequent diagnosis of small bowel perforation s/p small bowel resection with jejunal-Jejunal anastomosis, E. coli bacteremia and intubation for acute hypoxic respiratory failure. In the ICU she developed acute peroneal vein DVT and new onset atrial fibrillation requiring amiodarone drip and was started on systemic anticoagulation. She was discharged to acute rehabilitation on April 14. She was readmitted on April 21 due to anemia and transfused a total of 4 units. She was noted to have duodenal ulcers on her EGD and suspected bleeding to be from this due to ongoing melanocytic stool. Her Lovenox was continued after EGD was performed. The patient reports her melanic stools have not stopped since her original operation but her memory of this time is limited. She has been getting increasingly fatigued and dizzy over the last 2 days. Large increase in melanic stools noted by [facility] yesterday and subsequent hemoglobin dropped from 7.9 on March 30 to 4.7 today. Last lovenox dose was this morning at 5am. Principal Diagnosis Intra-abdominal bleeding, possible GI bleeding causing acute blood loss anemia Discharge Exam Constitutional well developed, + ill appearing and + frail appearing; no acute distress Eyes PERRL, conjunctivae normal, anicteric sclerae ENMT external ear and nose normal, oropharynx normal Neck trachea midline, no thyromegaly Respiratory + labored breathing; no cough Auscultation: lungs clear to auscultation bilaterally and + diminished lung sounds (bases) Cardiovascular Rate/Rhythm: regular rhythm and + tachycardic Heart Sounds: normal S1 and normal S2; no murmur Extremities: normal capillary refill; no edema Gastrointestinal (Abdomen) Inspection/Auscultation: normal bowel sounds; + abdomen abnormal to inspection (numerous fistula tracts) and abdomen not distended Percussion/Palpation: abdomen soft; abdomen nontender, no guarding and abdomen not rigid Musculoskeletal Head/Neck/Chest: normocephalic, head atraumatic and neck supple Extremities: extremities normal to inspection and + abnormal strength (generalized weakness) Skin no rashes, warm and dry Neurologic patellar DTR's 2+ bilat, sensation intact and PERRL, EOMI, accommodation nl, no face palsy, no dysarthria Psychiatric A+Ox3, euthymic affect Lymphatic no cervical or axillary lymphadenopathy Discharge Data Allergies Allergy/AdvReac Type Severity Reaction Status Date / Time morphine Allergy Mild ITCHING Verified 05/02/20 10:21 Penicillins Allergy Mild RASH Verified 05/02/20 10:21 tazobactam Allergy Mild RASH Verified 05/02/20 10:21 Consultations 05/02/20 09:55 ED Decision to Admit Stat 05/02/20 10:53 Consult Gastroenterology Routine 05/02/20 12:01 Consult Health Information Management Routine 05/02/20 12:02 Consult Health Information Management Routine 05/02/20 12:04 Consult Health Information Management Routine Procedures Performed Operation Date: 05/02/20 18:00 <No data on this case meets the specified criteria> Ordered Studies 05/02/20 12:30 CT abd pelvis IV con only Stat Hospital Course (1) Intra abdominal hemorrhage: CT with numerous areas of hematomas, tracks along liver, spleen, curvature of stomach unclear if this is active bleeding, prior blood loss needs to be transferred to [place] for evaluation by gynecologic oncology surgical service, consider IR evaluation for bleeding source in the meantime, close monitoring on PCU transfuse if hypotensive or Hb < 7 s/p transfusion of 4 units discharged to [place] at 11pm once they secured a bed for her (2) Acute GI bleeding: Recent EGD with duodenal ulcers evaluated by GI here, no plans for EGD, recommend transfer to [place] with melena all day long Hb up to 8.5 this morning, repeat still 8.5 this afternoon, BP stable repeat Hb in the morning, transfuse if < 7 or if hypotensive (3) HTN (hypertension): Hold amlodipine in setting of acute GI bleed as above. BP elevated today (4) Status post laparoscopic hysterectomy: Repeat CT A/P with IV contrast - hematomas intra-abdominal, numerous fistula tracts (5) DVT (deep venous thrombosis): Recent diagnosis of this. Certainly risk of anticoagulation at present outweighs any benefit. may need IVC filter but could be done at [place] (6) Endometrial cancer, grade I: Status post laparoscopic robotic hysterectomy and bilateral salpingo- oophorectomy 03/30/2020. No plans of chemotherapy as per patient. now with surgical complications (7) Small bowel perforation: Recent history of this requiring jejunal-Jejunal anastomosis. No current abdominal pain, nausea or vomiting. Repeat CT abdomen pelvis to reassess. has intra-abdominal hematomas, possible bleeding, fistula tracts (8) Paroxysmal A-fib: In setting of sepsis requiring. Monitor on telemetry for this. Total Time Total Time Spent Total Time Spent (In Minutes): 31 minutes Total Time Includes: Examination of the Patient, Discharge Planning and Medication Reconciliation Discharge Plan Discharge Items Patient Disposition: Transfer Acute Care Hospital Reason For Visit: SEVERE ANEMIA,ACUTE GI BLEED Discharge Diagnosis: Severe anemia, subcapsular hepatic hematoma, multiple intra-abdominal fistula tracts Condition on Discharge: Good Activity: As commented below Non-emergency contact: Primary Care Provider Call non-emergency contact if: you have any medication questions and your symptoms worsen Follow-up/Referrals: Pro,Zack Yeung MD [Primary Care Provider] - Diet: Other - See Diet Comment Diet Comment: N.p.o. Addtl Attending Provider Instructions: Candy Zaman is a 74-year-old female who presented to the ER with severe anemia. Initial concern for GI bleed given recent EGD @ [facility] showing duodenal ulcers and receiving ongoing Lovenox injections (last given 05/02 @ 5am). She was given 4 units PRBCs. Lovenox was discontinued. Subsequent CT showed subcapsular hepatic hematomas with multiple intra-abdominal fistula tracts. Due to this finding on CT, recent E. coli bacteremia with small bowel perforation: blood cultures were taken and she was started on cefepime and metronidazole. Case was discussed with Dr. Matthews (SENIOR WEB ENGINEER/ONC) and Dr Hartmann (Trauma/EGS) given recent complex history with care down at [facility] and no interventional radiology presents at [facility] she was accepted for transfer under the care of SENIOR WEB ENGINEER/ONC. Of note medicine list below is her outpatient medications. Please see copied inpatient medicine list for her up-to-date medications during her admission. Pending Studies at Discharge: Yes (Blood cultures) Stand-Alone Forms: My [facility] Skilled Items Patient informed of condition?: Yes DNR: No Discharge Level of Care: Other Communicable Disease: No Discharge Prognosis: Stable Lines: Peripheral IV Urinary Catheter: Yes Medications and DC Order Prescriptions: Continued moxifloxacin 400 mg tablet 400 mg PO QAM RF: 0 amlodipine 2.5 mg Tablet 2.5 mg PO DAILY@0900 RF: 0 pantoprazole 40 mg Tablet,Delayed Release (Dr/Ec) 40 mg PO DAILY@0500 RF: 0 docusate sodium [Colace] 100 mg Capsule 100 mg PO DAILY@1700 RF: 0 enoxaparin [Lovenox] 100 mg/mL Syringe 100 mg SUBCUT BID RF: 0 latanoprost 0.005 % drops 1 drp OPB QPM RF: 0 dorzolamide-timolol 22.3-6.8 mg/mL drops 1 drp OPB BID RF: 0 Discharge Orders: Discharge Order (Routine); Ordered 05/03/20 Ordered By: Govind Canales/Other Patient Handouts: Bleeding Gastrointestinal, Anemia Admission Data Admit Date/Time: 05/02/20 10:53 Attending Provider: Mitchell Izaguirre Admit Provider: Gino Dominique Primary Care Provider: Zack Baig Other Providers: Gino Dominique ; Ernesto Silverio Other Interventions: Discharge Summary Assessment (RN) Last Done: 05/03/20 22:24 Coding Level of Care Code D/C Day Management >30 mins Diagnoses Intra abdominal hemorrhage R58 Acute GI bleeding K92.2 HTN (hypertension) I10 Status post laparoscopic hysterectomy Z90.710 DVT (deep venous thrombosis) I82.409 Endometrial cancer, grade I C54.1 Small bowel perforation K63.1 Paroxysmal A-fib I48.0
== END 2020-05-03 23:20 | disposition short-term general hospital (02) | DRG 314 ==
LOC: ED 09:24 → SUATTDRO 10:53 → 2S 10:53

== ENCOUNTER 2023-10-13 15:53 | Inpatient (IN) ==
--- NOTE | 2023-10-13 16:07 | ED Triage Note ---
Date of Service October 13, 2023 Provider in Triage Author: Vi Bailey History of Present Illness This patient was briefly evaluated while in triage. An abbreviated physical exam was performed. This patient is a 78-year-old Female who presents to the ED for evaluation of abdominal pain, nausea, and vomiting. She started vomiting Sat after eating "bad food." Has had continued vomiting and now has abdominal pain. Had cataract surgery this morning, but was sick before surgery. Physical Exam GENERAL: Non-toxic and in no acute distress. HEENT: Pupils equal. No obvious scleral icterus. HEART: Regular rate and rhythm. LUNGS: Clear to auscultation. No accessory muscle use. ABDOMEN: Soft, diffusely tender to palpation. NEURO: Alert and oriented. No obvious neurological deficits on quick neuro exam. Initial orders for labs and / or imaging were placed and patient was placed in the waiting area until a bed is available. Please see further documentation for the full ED course. MDM / Impression Impression Impression: Abdominal pain, Bowel obstruction, Dehydration
--- NOTE | 2023-10-13 16:42 | XRay Report ---
XR chest 1V portable CLINICAL HISTORY: Abdominal pain, vomiting TECHNIQUE: Single frontal radiograph of the chest was obtained. Comparison: Comparison is made to chest radiograph 10/09/2020 FINDINGS: No lines and tubes are seen. The cardiomediastinal silhouette is normal. The lungs are clear. No evid ence of pleural effusion or pneumothorax. IMPRESSION: No acute chest disease. ACT 112: Negative or not required by law. Electronically signed by: Mitchell Castano M.D. 10/13/2023 4:41 PM
[2023-10-13 17:30] LABS: Basophils # (auto) 0.03 K/uL (0.00-0.20); Basophils % (auto) 0.2 %; Hematocrit (blood only) 51.1 % (37.0-47.0); Hemoglobin 17.1 g/dl (12.0-16.0); Immature Granulocytes # (auto) 0.07 K/uL (0.01-0.20); Immature Granulocytes % (auto) 0.4 %; Lymphocytes # (auto) 0.55 K/uL (1.20-3.40); Lymphocytes % (auto) 3.4 %; Mean Corpuscular Hemoglobin 29.8 pg (25.0-34.0); Mean Corpuscular Hgb Conc 33.5 g/dL (32.0-36.0); Mean Platelet Volume 9.8 fL (9.4-12.4); Monocytes # (auto) 1.07 K/uL (0.11-0.59); Monocytes % (auto) 6.7 %; Neutrophils # (auto) 14.25 K/uL (1.40-6.50); Neutrophils % (auto) 89.3 %; Platelet Count 349 K/uL (130-400); RDW Coefficient of Variation 12.5 % (11.5-14.5); RDW Standard Deviation 41.1 fL (36.4-46.3); Red Blood Count 5.74 M/uL (4.20-5.40); White Blood Count 15.97 K/ul (4.8-10.8)
[2023-10-13 17:46] LABS: Alanine Aminotransferase 12 U/L (7-52); Albumin Globulin Ratio 1.4 (0.9-2); Albumin Level 4.5 gm/dl (3.4-5.0); Alkaline Phosphatase 53 U/L (34-104); Anion Gap 10 (3-11); Aspartate Aminotransferase 13 U/L (13-39); BUN Creatinine Ratio 14.6 (10-20); Bilirubin,Total 1.1 mg/dl (0.2-1.0); Blood Urea Nitrogen 13 mg/dl (6-23); Calcium 9.7 mg/dl (8.6-10.3); Carbon Dioxide 27 mmol/L (21-32); Chloride 98 mmol/L (98-107); Est GFR (African American) 71.9 ml/min; Est GFR (Non-African American) 62.1 ml/min; Globulin 3.3 gm/dl (2.5-4.0); Glucose 242 mg/dl (70-99(Fasting)); Lipase 8 U/L (11-82); Magnesium 1.9 mg/dl (1.7-2.4); Potassium 4.3 mmol/L (3.5-5.1); Sodium 135 mmol/L (136-145); Total Protein 7.8 gm/dl (6.0-8.3)
[2023-10-13] MEDS: ONDANSETRON INJ 2 MG/ML 2 ML VIAL IV STA (17:47)
[2023-10-13] MEDS: SODIUM CHLORIDE 0.9% 500 ML IV STA (17:47)
[2023-10-13] MEDS: ACETAMINOPHEN 1,000 MG/100 ML VIAL IV STA ×2 (17:47→21:21)
[2023-10-13 17:52] LABS: Troponin I High Sensitivity 5.7 pg/ml (0-14)
--- NOTE | 2023-10-13 17:52 | Emergency Department Note ---
Impression & Plan Abdominal pain, Bowel obstruction, Dehydration ED Provider Note ED Provider Note NAME: FREDY HELMS AGE:78 SEX: Female : 1945 ARRIVES VIA: Private vehicle INFORMANT: Patient ED PROVIDER(s): Marcy Krishna DO CHIEF COMPLAINT: Abdominal pain, nausea and vomiting HPI: This is a 78-year-old female presents emergency room due to concern for abdominal pain, nausea and vomiting. Patient states symptoms first began on Friday and she thought it was due to seafood that she had eaten. Patient states symptoms would slowly ammy and then recur whenever she tried to eat or drink anything. She did not notice any diarrhea but did not have much stool output given lack of intake. She and at bedside state that she has not had much to eat over the last 3 days. She did try to eat yesterday however had recurrent pain, nausea and vomiting. She states she woke up this morning and felt well and went to her scheduled cataract surgery. She states following surgery when she tried to eat or drink something she again had abdominal pain, nausea and vomiting and presented to the ER due to her concern. Patient has had prior abdominal surgeries including bowel resection from diverticulitis and hysterectomy which did involve complication from nicked bowel during the surgery. She denies any other known sick contacts or new medications. Seen in conjunction with FP resident, Dr. Chakraborty. She was initially seen in a waiting room area she presented on the day of high volume and acuity. PAST MEDICAL HISTORY:See Below PAST SURGICAL HISTORY:See Below FAMILY HISTORY:See Below SOCIAL HISTORY:See Below HOME MEDICATIONS:See Below ALLERGIES:See Below VITALS:See Below PHYSICAL EXAMINATION: GENERAL: alert, uncomfortable appearing, well nourished, no distress, non-toxic EYE EXAM: normal conjunctiva, PERRL and EOM's grossly intact OROPHARYNX: no exudate, no erythema, lips, buccal mucosa, and tongue normal and mucous membranes are dry NECK: supple, no nuchal rigidity, no adenopathy, non-tender LUNGS: Clear to auscultation. Normal chest wall mechanics, no w/r/r HEART: no murmurs, S1 normal and S2 normal ABDOMEN: abdomen soft, tenderness with palpation in the central lower abdomen and left lower quadrant, normo-active bowel sounds, no masses, no rebound or guarding. SKIN: no rashes, petechiae, orbruising UPPER EXTREMITIES: upper extremities are grossly normal. FROM, nml pulses b/l. LOWER EXTREMITIES: No pitting edema. FROM, nml pulses b/l. NEURO EXAM: Normal sensorium, cranial nerves II-XII grossly intact, normal speech, no facial droop,nogross weakness of arms, no gross weakness of legs. Gross sensation intact. No ataxia. Vital Signs: reviewed and remarkable Differential Diagnosis: Gastroenteritis, Food Borne, Esophageal Perforation, Electrolyte Abnormality, Dehydration, Intraabdominal Infection, UTI/Pyelonephritis, Bowel Obstruction, Biliary Pathology, amongst other pathology entertained. MEDICAL DECISION MAKING: This is a 78-year-old female who presents due to concern for abdominal pain, nausea and vomiting. Patient was afebrile vital signs stable on arrival. Labs drawn and sent, IV established, EKG and chest x-ray performed bedside interpreted by me and patient monitored on telemetry. She was sent for CT of the abdomen/pelvis additionally after evaluation. Patient's labs reassuring however CT revealed high-grade bowel obstruction. On-call surgery was contacted and Efrem Gallagher PA-C came and evaluated the patient at bedside. Patient declined NG tube at this time has both discussed with me and with the surgery PA. Case discussed with Dr. Anderson, hospitalist team for additional evaluation. Patient maintained on IV fluids and given medication for nausea and pain. Patient noted to have elevated H&H likely from dehydration, I suspect leukocytosis secondary to vomiting and pain response. Patient also noted to have hyperglycemia although is a known diabetic, no evidence of DKA. Consultation(s): 1944: Discussed with Efrem Holly PA-C with general surgery. He will evaluate the patient at bedside. 2019: Discussed with Dr. Anderson, [place] hospitalist for additional evaluation and mgmt. ER Treatment Provided: See below Diagnostics Interpreted By Me: -ECG: Atrial fibrillation at 75, normal axis, normal intervals, nonspecific ST/T wave changes -Cardiac Monitoring: An order was placed for continuous cardiac monitoring. The monitor shows a rate of 80 with normal sinus rhythm. -Laboratory studies: As stated above and show below. -Imaging studies: X-ray Chest: A single view study of the chest was reviewed and was negative for cardiomegaly, focal infiltrate, effusion, pulmonary edema, or wide mediastinum. Triage Nursing Note Reviewed Prior/Outside Records Reviewed -reviewed prior records from [facility] with assistance from FP resident Past Med/Surg History Medical History Paroxysmal A-fib hx of 2019--no further issues, no pool hand History of atrial fibrillation happened after CHELSEA BSO/Bowel Peforation issues @ [facility] [place]--was on blood thinner, taken off after GI Bleed requiring 4 units of PRBCs--pt states she has not had any further issues of A fib since this issue in 2019---pt states she does not follow with a pool hand at this time History of endometrial cancer (~03/2020) Grade 1 Diabetes mellitus metformin daily Lower extremity edema Bilateral hand swelling Urinary frequency Tendonitis Right wrist pain Intra abdominal hemorrhage hx 2019 Acute upper gastrointestinal bleeding hx of 2019 Small bowel perforation (~04/04/20) happened after CHELSEA BSO @ [facility] [place]--pt had to have a bowel resection DVT (deep venous thrombosis) hx of Osteoarthritis Urinary leakage Diverticular disease Glaucoma PMB (postmenopausal bleeding) Vaginal bleeding HTN (hypertension) Hyperlipidemia no meds Surgical History History of esophagogastroduodenoscopy (EGD) (~04/27/20) @ [facility] [place] d/t bleed--had to receive 4 units PRBCS History of abdominal surgery after CHELSEA BSO @ [facility] [place] 03/30/20 pt had a bowel perforation 04/04/20 and had to have a bowel resection History of dilatation and curettage (~03/2020) History of hysterectomy for cancer (~03/30/20) CHELSEA BSO for Grade 1 endometrial c.a. @ [facility] [place] Slow to wake up after anesthesia History of carpal tunnel release Left History of cervical polypectomy History of colostomy reversal (~2006) History of colostomy after diverticular disease issue 2006 History of bowel resection r/t diverticular disease Family History Father Diabetes Mother Liver cancer Myocardial infarction Other Diverticulitis No family history of adverse response to anesthesia Denies family history of Ovarian cancer Prostate cancer Breast cancer Colorectal cancer Social History Smoking Status: Never smoker Tobacco Type: Cigarettes Second Hand Exposure: No; Do You Dip or Chew Tobacco: No; Hx Alcohol Use: Yes Alcohol type: hard liquor Hx Substance Use: No Preferred Language: Swedish Communication Ability: Effective Visual Impairment: No Limitations Hearing Ability: Normal Catering Chef Required: No Beliefs That Will Affect Care: None marital status: widowe Current Living Situation: Alone current occupational status: retired Feels Safe at Home: Yes Childhood Exposure to Second-Hand Smoke: No Dental Care, Regularly: Yes Physical Activity Frequency: 3-4 Times per Week Seatbelt Use: always Sunscreen Use: Yes Assistive Devices: Glasses Allergies Allergies Allergy/AdvReac Type Severity Reaction Status Date / Time morphine Allergy Mild ITCHING Verified 10/13/23 07:56 Penicillins Allergy Mild RASH Verified 10/13/23 07:56 tazobactam Allergy Mild RASH Verified 10/13/23 07:56 Home Meds Home Medications Medication Instructions Recorded Confirmed dorzolamide 22.3 mg-timolol 6.8 1 drp OPB BID 11/05/19 10/13/23 mg/mL eye drops latanoprost 0.005 % eye drops 1 drp OPB QPM 11/05/19 10/13/23 ascorbate calcium (vitamin C) 500 500 mg PO QAM 11/05/21 10/13/23 mg tablet cholecalciferol (vitamin D3) 25 25 mcg PO QAM 04/04/22 10/13/23 mcg (1,000 unit) tablet (Vitamin D3) cyanocobalamin (vitamin B-12) 1,000 mcg PO QAM 07/10/22 10/13/23 1,000 mcg tablet (Vitamin B-12) telmisartan 20 mg tablet (Micardis) 20 mg PO QAM 10/07/23 10/13/23 Previous Rx's Medication Instructions Recorded blood sugar diagnostic (Get.comTouch #90 ea 04/01/22 Ultra Test strips) blood-glucose meter (Get.comTouch #1 ea 04/02/22 Ultra2 Meter kit) lancets 33 gauge (OneTouch Delica #100 ea 01/28/23 Lancets) blood sugar diagnostic (OneTouch #90 ea 03/13/23 Ultra Test strips) amlodipine 5 mg tablet 5 mg PO QAM #90 tabs 06/04/23 metformin 500 mg tablet,extended 500 mg PO BID #60 tabs 08/29/23 release 24 hr Results & Data (ED) Vital Signs Vital Signs - 24 hr 10/13/23 16:05 10/13/23 19:37 10/13/23 19:37 Temperature 36.7 C Temperature Source Temporal Artery Scan Pulse Rate 72 Pulse Rate [Apical] 77 Pulse Rhythm [Apical] Regular Respiratory Rate 20 18 Respiratory Effort / Characteristics Non-Labored Spontaneous Respiratory Depth Normal Respiratory Pattern Regular Blood Pressure 156/89 H Blood Pressure [Right Arm] 163/66 H Blood Pressure Mean 111 Blood Pressure Mean [Right Arm] 98 Blood Pressure Position [Right Arm] Lying Pulse Oximetry 98 94 94 Oxygen Delivery Method Room Air Room Air Sepsis Recent Fever Within 48 Hours No Sepsis New/Unexplained Change in Mental Status N/A Sepsis Action Taken by Nursing No Action Required 10/13/23 19:39 Temperature Temperature Source Pulse Rate 84 Pulse Rate [Apical] Pulse Rhythm [Apical] Respiratory Rate Respiratory Effort / Characteristics Respiratory Depth Respiratory Pattern Blood Pressure Blood Pressure [Right Arm] Blood Pressure Mean Blood Pressure Mean [Right Arm] Blood Pressure Position [Right Arm] Pulse Oximetry Oxygen Delivery Method Sepsis Recent Fever Within 48 Hours Sepsis New/Unexplained Change in Mental Status Sepsis Action Taken by Nursing Laboratory Data 10/13/23 17:05 10/13/23 17:05 Lab Results 10/13/23 10/13/23 Range/Units 17:05 19:23 WBC 15.97 H (4.8-10.8) K/ul RBC 5.74 H (4.20-5.40) M/uL Hgb 17.1 H (12.0-16.0) g/dl Hct 51.1 H (37.0-47.0) % MCV 89.0 (80.0-100.0) fL MCH 29.8 (25.0-34.0) pg MCHC 33.5 (32.0-36.0) g/dL RDW Std Deviation 41.1 (36.4-46.3) fL RDW Coeff of Susannah 12.5 (11.5-14.5) % Plt Count 349 (130-400) K/uL MPV 9.8 (9.4-12.4) fL Immature Gran % (Auto) 0.4 % Neut % (Auto) 89.3 % Lymph % (Auto) 3.4 % [place] % (Auto) 6.7 % Eos % (Auto) 0.0 % Baso % (Auto) 0.2 % Neut # (Auto) 14.25 H (1.40-6.50) K/uL Lymph # (Auto) 0.55 L (1.20-3.40) K/uL [place] # (Auto) 1.07 H (0.11-0.59) K/uL Eos # (Auto) 0.00 (0.00-0.50) K/uL Baso # (Auto) 0.03 (0.00-0.20) K/uL Immature Gran # (Auto) 0.07 (0.01-0.20) K/uL Sodium 135 L (136-145) mmol/L Potassium 4.3 (3.5-5.1) mmol/L Chloride 98 (98-107) mmol/L Carbon Dioxide 27 (21-32) mmol/L Anion Gap 10 (3-11) BUN 13 (6-23) mg/dl Creatinine 0.89 (0.6-1.2) mg/dl Est Cr Clr Drug Dosing Not Reportable Est GFR ( Amer) 71.9 ml/min Est GFR (Non-Af Amer) 62.1 ml/min BUN/Creatinine Ratio 14.6 (10-20) Glucose 242 H (70-99(Fasting)) mg/dl Calcium 9.7 (8.6-10.3) mg/dl Magnesium 1.9 (1.7-2.4) mg/dl Total Bilirubin 1.1 H (0.2-1.0) mg/dl AST 13 (13-39) U/L ALT 12 (7-52) U/L Alkaline Phosphatase 53 (34-104) U/L Troponin I High Sens 5.7 (0-14) pg/ml Total Protein 7.8 (6.0-8.3) gm/dl Albumin 4.5 (3.4-5.0) gm/dl Globulin 3.3 (2.5-4.0) gm/dl Albumin/Globulin Ratio 1.4 (0.9-2) Lipase 8 L (11-82) U/L Urine Color Dark Yellow Urine Appearance Clear (Clear) Urine pH 6.0 (4.5-7.5) Ur Specific [place] > 1.045 H (1.000-1.030) Urine Protein Trace H (Negative) Urine Glucose (UA) 1+ H (Negative) Urine Ketones 3+ H (Negative) Urine Blood Negative (Negative) Urine Nitrite Negative (Negative) Urine Bilirubin Negative (Negative) Urine Urobilinogen Negative (Negative) Ur Leukocyte Esterase Negative (Negative) Urine WBC (Auto) 1-5 (0-5) /hpf Urine RBC (Auto) 5-10 H (0-4) /hpf U Hyaline Cast (Auto) 1-5 (0-5) /lpf U Epithel Cells (Auto) 20-30 H (0-5) /lpf Urine Bacteria (Auto) Negative (Negative) SARS-CoV-2 (PCR) NEGATIVE (Negative) Influenza Type A (PCR) Negative (Neg) Influenza Type B (PCR) Negative (Neg) RSV (RT-PCR) Negative (Neg) Administered Medications Sodium Chloride (Nss) 1,000 mls @ 150 mls/hr IV .Q6H40M JENAE Stop: 11/12/23 20:59 Last Admin: 10/13/23 21:21 Dose: 150 mls/hr Documented By: JOSE G Discontinued Medications Sodium Chloride (Nss) 500 mls @ 999 mls/hr IV .Q31M STA Stop: 10/13/23 16:37 Last Infusion: 10/13/23 19:36 Dose: Infused Documented By: JOSE G Admin: 10/13/23 17:47 Dose: 999 mls/hr Documented By: MISSY Acetaminophen (Ofirmev) 1,000 mg in 100 mls @ 400 mls/hr IV NOW STA Stop: 10/13/23 16:25 Last Infusion: 10/13/23 19:36 Dose: Infused Documented By: JOSE G Admin: 10/13/23 17:47 Dose: 400 mls/hr Documented By: MISSY Famotidine (Pepcid 20mg Iv Push) 20 mg in 5 mls @ 2.5 mls/min IV NOW STA Stop: 10/13/23 20:51 Last Admin: 10/13/23 21:21 Dose: 2.5 mls/min Documented By: JOSE G Acetaminophen (Ofirmev) 1,000 mg in 100 mls @ 400 mls/hr IV NOW STA Stop: 10/13/23 21:04 Last Admin: 10/13/23 21:21 Dose: 400 mls/hr Documented By: JOSE G Ioversol (Optiray 320 500ml) 91 ml IV ONCE ONE Stop: 10/13/23 18:26 Last Admin: 10/13/23 18:26 Dose: 91 ml Documented By: ASA Ondansetron HCl (Ondansetron Inj 2 Mg/Ml 2 Ml Vial) 4 mg IV NOW STA Stop: 10/13/23 16:08 Last Admin: 10/13/23 17:47 Dose: Not Given Documented By: MISSY Imaging Data Radiologist's Impression: Abdomen/Pelvis CT 10/13/23 16:08 CT SCAN OF THE ABDOMEN AND PELVIS WITH IV CONTRAST CLINICAL HISTORY: Generalized abdominal pain. Vomiting. COMPARISON STUDY: Abdominal CT dated 05/02/2020. TECHNIQUE: Following the IV administration of 91 cc of Optiray 320, CT scan of the abdomen and pelvis is performed from the lung bases to the proximal femora. Images are reviewed in the axial, sagittal, and coronal planes. IV contrast was administered without complication. A dose lowering technique was utilized adhering to the principles of ALARA. CT DOSE: 1413.14 mGy.cm FINDINGS: Lung bases: The heart is normal in size and without pericardial effusion. There are coronary artery calcifications. There is lipomatous hypertrophy of the interatrial septum. There is mild elevation of right hemidiaphragm and bibasilar scarring/atelectasis. No airspace consolidation or pleural effusion is seen. Liver: The contrast-enhanced liver is normal in size, contour, and attenuation. There is no intrahepatic biliary ductal dilatation. The hepatic veins and portal veins are patent. A 3.2 cm minimally complex right lobe cyst is again noted. Gallbladder: Unremarkable. Spleen: Normal in size and attenuation. Pancreas: The pancreas is atrophic. There are at least 2 simple cystic pancreatic lesions measure up to 14 mm. These are typical for sidebranch IPMNs. Adrenal glands: Unremarkable. Kidneys: The contrast enhanced kidneys demonstrate mild cortical atrophy and are without hydronephrosis. The kidneys enhance symmetrically. Abdominal vasculature: The abdominal aorta is normal in course and caliber noting advanced atherosclerotic calcification. Bowel: There is postsurgical change from rectosigmoid resection with colocolonic anastomosis. The small bowel anastomosis is seen in the right lower quadrant. There are distended, fluid-filled, and fecalized loops of small bowel in the central lower abdomen and upper pelvis. These measure up to 4 cm diameter. A focal transition point is seen anteriorly on image #283, and the distal small bowel and colon are decompressed. Findings are consistent with a high-grade small bowel obstruction. There is no pneumatosis intestinalis or portal venous gas. Interloop fluid is observed. No significant bowel wall thickening is identified. The appendix is normal as visualized. Enteroenteric fistulas suggested on 05/02/2020 are not visualized. Peritoneum: There is no intraperitoneal free air or abdominal ascites. A midline surgical scar is noted. A chronic thick-walled fluid collection posterior to the right hepatic lobe below the diaphragm image #93 measures approximately 5.5 x 1 cm Lymphadenopathy: None. Pelvic viscera: The bladder is normal as visualized. The uterus is surgically absent. No adnexal lesion is seen. Skeletal structures: The skeletal structures are osteopenic. There is mild to moderate lumbosacral spondylosis. Sclerotic change is noted in the sacroiliac joints and pubic symphysis. Mild thickening and sclerosis of the left iliac wing is similar to the 2020 examination. No destructive bony lesion is clearly Seen. IMPRESSION: 1. High-grade small bowel obstruction as above. A transition point is located in the ventral upper pelvis, and this is likely on the basis of adhesions. 2. Interloop fluid is observed. There is no obstruction or free air identified. No pneumatosis intestinalis or portal venous gas is seen. 3. A small thick-walled and chronic periventricular collection seen posterior to the right hepatic lobe. This has significantly decreased in size as compared to a fluid collection at this site seen on 05/02/2020. 4. Additional findings as above. ACT 112: Negative or not required by law. Electronically signed by: Tyler Higuera M.D. 10/13/2023 6:47 PM Chest X-Ray 10/13/23 16:08 XR chest 1V portable CLINICAL HISTORY: Abdominal pain, vomiting TECHNIQUE: Single frontal radiograph of the chest was obtained. Comparison: Comparison is made to chest radiograph 10/09/2020 FINDINGS: No lines and tubes are seen. The cardiomediastinal silhouette is normal. The lungs are clear. No evidence of pleural effusion or pneumothorax. IMPRESSION: No acute chest disease. ACT 112: Negative or not required by law. Electronically signed by: Mitchell Castano M.D. 10/13/2023 4:41 PM Discharge Plan Visit Data Chief Complaint: Abdominal Pain Stated Complaint: ABDOMINAL PAIN, POSSIBLE FOOD POISONING ED Provider: Marcy Krishna Discharge Problem: Abdominal pain, Bowel obstruction, Dehydration Forms Stand Alone Forms: My [facility] [employer] Prescriptions Prescriptions: No Action (DME) blood-glucose meter [OneTouch Ultra2 Meter] Kit See Rx Instructions .Route Qty: 1 0RF Rx Instructions: As directed to check BS daily (DME) lancets [OneTouch Delica Lancets] 33 gauge misc See Rx Instructions .Route Qty: 100 3RF Rx Instructions: As directed to check BS daily (DME) OneTouch Ultra Test Strip See Rx Instructions .Route Qty: 90 3RF Rx Instructions: test once daily E11.9 amlodipine 5 mg tablet 5 mg PO QAM Qty: 90 1RF metformin 500 mg tablet extended release 24 hr 500 mg PO BID Qty: 60 5RF Rx Instructions: with meals. cyanocobalamin (vitamin B-12) [Vitamin B-12] 1,000 mcg tablet 1,000 mcg PO QAM ascorbate calcium (vitamin C) 500 mg tablet 500 mg PO QAM (DME) OneTouch Ultra Test Strip See Rx Instructions .Route Qty: 90 3RF Rx Instructions: test once daily E11.9 latanoprost 0.005 % drops 1 drp OPB QPM dorzolamide-timolol 22.3-6.8 mg/mL drops 1 drp OPB BID cholecalciferol (vitamin D3) [Vitamin D3] 25 mcg (1,000 unit) Tablet 25 mcg PO QAM telmisartan [Micardis] 20 mg tablet 20 mg PO QAM Referrals Referrals: Pro,Zack Yeung MD [Primary Care Provider] -
[2023-10-13 18:01] LABS: Influenza A virus by PCR Negative (Neg); Influenza B virus by PCR Negative (Neg); RSV by PCR Negative (Neg); SARS CoV2 RNA(COVID-19) Ceph NEGATIVE (Negative)
--- NOTE | 2023-10-13 18:05 | Communication Note ---
Date of Service: October 13, 2023 I personally obtained a history from and examined the patient. Refer to Dr. Krishna's note for further details. Resident Activity Tracking Resident Involvement: Resident Care Provided Care Provided: Adult ED
[2023-10-13] MEDS: OPTIRAY 320 500ml IV ONE (18:26)
--- NOTE | 2023-10-13 18:49 | CT Scan Report ---
CT SCAN OF THE ABDOMEN AND PELVIS WITH IV CONTRAST CLINICAL HISTORY: Generalized abdominal pain. Vomiting. COMPARISON STUDY: Abdominal CT dated 05/02/2020. TECHNIQUE: Following the IV administration of 91 cc of Optiray 320, CT scan of the abdomen and pelvi s is performed from the lung bases to the proximal femora. Images are reviewed in the axial, sagittal , and coronal planes. IV contrast was administered without complication. A dose lowering technique wa s utilized adhering to the principles of ALARA. CT DOSE: 1413.14 mGy.cm FINDINGS: Lung bases: The heart is normal in size and without pericardial effusion. There are coronary artery c alcifications. There is lipomatous hypertrophy of the interatrial septum. There is mild elevation of right hemidiaphragm and bibasilar scarring/atelectasis. No airspace consolidation or pleural effusion is seen. Liver: The contrast-enhanced liver is normal in size, contour, and attenuation. There is no intrahepa tic biliary ductal dilatation. The hepatic veins and portal veins are patent. A 3.2 cm minimally comp davis right lobe cyst is again noted. Gallbladder: Unremarkable. Spleen: Normal in size and attenuation. Pancreas: The pancreas is atrophic. There are at least 2 simple cystic pancreatic lesions measure up to 14 mm. These are typical for sidebranch IPMNs. Adrenal glands: Unremarkable. Kidneys: The contrast enhanced kidneys demonstrate mild cortical atrophy and are without hydronephros is. The kidneys enhance symmetrically. Abdominal vasculature: The abdominal aorta is normal in course and caliber noting advanced atheroscle rotic calcification. Bowel: There is postsurgical change from rectosigmoid resection with colocolonic anastomosis. The sma ll bowel anastomosis is seen in the right lower quadrant. There are distended, fluid-filled, and feca lized loops of small bowel in the central lower abdomen and upper pelvis. These measure up to 4 cm di ameter. A focal transition point is seen anteriorly on image #283, and the distal small bowel and col on are decompressed. Findings are consistent with a high-grade small bowel obstruction. There is no p neumatosis intestinalis or portal venous gas. Interloop fluid is observed. No significant bowel wall thickening is identified. The appendix is normal as visualized. Enteroenteric fistulas suggested on 05/02/2020 are not visualized. Peritoneum: There is no intraperitoneal free air or abdominal ascites. A midline surgical scar is not ed. A chronic thick-walled fluid collection posterior to the right hepatic lobe below the diaphragm i mage #93 measures approximately 5.5 x 1 cm Lymphadenopathy: None. Pelvic viscera: The bladder is normal as visualized. The uterus is surgically absent. No adnexal lesi on is seen. Skeletal structures: The skeletal structures are osteopenic. There is mild to moderate lumbosacral sp ondylosis. Sclerotic change is noted in the sacroiliac joints and pubic symphysis. Mild thickening an d sclerosis of the left iliac wing is similar to the 2020 examination. No destructive bony lesion is clearly Seen. IMPRESSION: 1. High-grade small bowel obstruction as above. A transition point is located in the ventral upper pe lvis, and this is likely on the basis of adhesions. 2. Interloop fluid is observed. There is no obstruction or free air identified. No pneumatosis intest inalis or portal venous gas is seen. 3. A small thick-walled and chronic periventricular collection seen posterior to the right hepatic lo be. This has significantly decreased in size as compared to a fluid collection at this site seen on . 4. Additional findings as above. ACT 112: Negative or not required by law. Electronically signed by: Tyler Higuera M.D. 10/13/2023 6:47 PM
[2023-10-13 19:51] LABS: Appearance Urine Clear (Clear); Bacteria Urine Automated Negative (Negative); Bilirubin Urine Negative (Negative); Blood Urine Negative (Negative); Color Urine Dark Yellow; Epithelial Cell Urine Auto 20-30 /lpf (0-5); Glucose Urine UA 1+ (Negative); Ketones Urine 3+ (Negative); Leukocyte Esterase Urine Negative (Negative); Nitrite Urine Negative (Negative); Protein Urine Trace (Negative); Specific Gravity Urine > 1.045 (1.000-1.030); Urobilinogen Urine Negative (Negative)
--- NOTE | 2023-10-13 20:08 | History & Physical Report ---
Date of Service October 13, 2023 Assessment & Plan (1) Bowel obstruction: Plan: Left-sided abdominal pain and vomiting that started on Wednesday 10/11 Leukocytosis of 15.97 with neutrophil predominance; afebrile CXR NAF Abdomen/pelvic CT on arrival showed high-grade SBO (likely secondary to adhesions) General surgery consulted; plan is to manage conservatively for now Strict n.p.o.; hold p.o. medications Discussed NG tube placement with patient, however she declined NG tube placement upon admission; risks/benefits were discussed with her at this time, as well as how decompressing the stomach can prevent symptoms from worsening; patient reports she is willing to reassess if her symptoms worsen Continue IVF resuscitation with LR at 150mL/hr x7 (continue longer if needed) Famotidine 20 mg IV QAM Acetaminophen IV as needed for pain Zofran IV as needed for nausea/vomiting; QTc 428 A.m. CBC, BMP, mag (2) Diabetes mellitus: Plan: Last A1c at 7.9% on 10/09/2023 Glucose 189 on admission Hold metformin BSG q6h while patient is n.p.o. Will hold insulin for now given patient is not currently eating Adjust regimen as needed (3) Paroxysmal A-fib: Plan: EKG revealed atrial fibrillation at 75 bpm; QTc 428 Patient reports that she had paroxysmal A-fib at [facility] in 2019, but has never heard about it since Not currently on blood thinners Clinically, patient denies CP or chest palpitations Continuous telemetry monitoring (4) HTN (hypertension): Plan: Hold telmisartan, amlodipine (5) History of resection of small bowel: Plan: In 2007 due to diverticulitis Plan Disposition: Admit to PCU telemetry Full code Strict n.p.o. for now VTE PPx: SCDs (consider adding chemical DVT ppx for extended stay) History of Present Illness Chief Complaint: Abdominal pain Primary Care Provider: Zack Baig MD Candy is a 78-year-old female with PMH of HTN, HLD, diabetes, endometrial cancer, and vitamin B12 deficiency. She presented for left-sided abdominal pain and vomiting that started after eating seafood on Wednesday 10/11. She endorses fever, sweating, and vomiting Friday night, as well as left-sided abdominal pain that has been ongoing since that time. She last vomited the morning of 10/13. Last BM was Friday night 10/11, however she reports that it was mainly leakage, diarrhea. Patient reports she is still passing gas. Of note, the patient had cataract eye surgery on her left eye this morning on 10/13. Patient only took her blood pressure medications this morning (amlodipine and telmisartan). She endorses central/LLQ abdominal pain that is 4/10 at present. No radiation. She has not been taking pain medication at home. She is unsure if it is worse with movement or different positions. She reports she may have had atrial fibrillation in the past when she was at [facility] for a hysterectomy (2019), however she was not placed on blood thinners and has never had follow-up for this. She denies recent alcohol use, smoking, and tobacco use. Surgical history includes a small bowel obstruction due to diverticulitis in 2007, as well as a hysterectomy in 2019 that involved a complication due to nicking (which required a second surgery). Patient is status post reverse ileostomy. Patient is hypertensive at 163/66 at time of admission; vitals otherwise stable. ED course: Acetaminophen 1000 mg IV x2 Famotidine 20 mg IV Zofran 4 mg IV NSS 1500 mL IV ROS: Patient endorses fever/sweating (which resolved on Friday), left-sided abdominal pain, nausea, and vomiting. Patient denies body aches, dizziness, lightheadedness, headache, chest pain, cough, pleuritic CP, hematemesis, blood in the urine or stool, dysuria, urinary retention, burning with urination, and numbness/tingling/pain in the arms or legs. Allergies Allergy/AdvReac Type Severity Reaction Status Date / Time morphine Allergy Mild ITCHING Verified 10/13/23 07:56 Penicillins Allergy Mild RASH Verified 10/13/23 07:56 tazobactam Allergy Mild RASH Verified 10/13/23 07:56 Home Medications Medication Instructions Recorded Confirmed Type dorzolamide 22.3 mg-timolol 6.8 1 drp OPB BID 11/05/19 10/13/23 History mg/mL eye drops latanoprost 0.005 % eye drops 1 drp OPB QPM 11/05/19 10/13/23 History ascorbate calcium (vitamin C) 500 500 mg PO QAM 11/05/21 10/13/23 History mg tablet blood sugar diagnostic (OneTouch #90 ea 04/01/22 05/16/23 Rx Ultra Test strips) blood-glucose meter (OneTouch #1 ea 04/02/22 05/16/23 Rx Ultra2 Meter kit) cholecalciferol (vitamin D3) 25 25 mcg PO QAM 04/04/22 10/13/23 History mcg (1,000 unit) tablet (Vitamin D3) cyanocobalamin (vitamin B-12) 1,000 mcg PO QAM 07/10/22 10/13/23 History 1,000 mcg tablet (Vitamin B-12) lancets 33 gauge (OneTouch Delica #100 ea 01/28/23 05/16/23 Rx Lancets) blood sugar diagnostic (OneTouch #90 ea 03/13/23 05/16/23 Rx Ultra Test strips) amlodipine 5 mg tablet 5 mg PO QAM #90 tabs 06/04/23 10/13/23 Rx metformin 500 mg tablet,extended 500 mg PO BID #60 tabs 08/29/23 10/13/23 Rx release 24 hr telmisartan 20 mg tablet (Micardis) 20 mg PO QAM 10/07/23 10/13/23 History Past Med/Surg History Medical History Paroxysmal A-fib hx of 2019--no further issues, no location analyst History of atrial fibrillation happened after CHELSEA BSO/Bowel Peforation issues @ [facility]--was on blood thinner, taken off after GI Bleed requiring 4 units of PRBCs--pt states she has not had any further issues of A fib since this issue in 2019---pt states she does not follow with a location analyst at this time History of endometrial cancer (~03/2020) Grade 1 Diabetes mellitus metformin daily Lower extremity edema Bilateral hand swelling Urinary frequency Tendonitis Right wrist pain Intra abdominal hemorrhage hx 2019 Acute upper gastrointestinal bleeding hx of 2019 Small bowel perforation (~04/04/20) happened after CHELSEA BSO @ [facility]--pt had to have a bowel resection DVT (deep venous thrombosis) hx of Osteoarthritis Urinary leakage Diverticular disease Glaucoma PMB (postmenopausal bleeding) Vaginal bleeding HTN (hypertension) Hyperlipidemia no meds Surgical History History of esophagogastroduodenoscopy (EGD) (~04/27/20) @ [facility] d/t bleed--had to receive 4 units PRBCS History of abdominal surgery after CHELSEA BSO @ [facility] 03/30/20 pt had a bowel perforation 04/04/20 and had to have a bowel resection History of dilatation and curettage (~03/2020) History of hysterectomy for cancer (~03/30/20) CHELSEA BSO for Grade 1 endometrial c.a. @ [facility] Slow to wake up after anesthesia History of carpal tunnel release Left History of cervical polypectomy History of colostomy reversal (~2006) History of colostomy after diverticular disease issue 2006 History of bowel resection r/t diverticular disease Family History Father Diabetes Mother Liver cancer Myocardial infarction Other Diverticulitis No family history of adverse response to anesthesia Denies family history of Ovarian cancer Prostate cancer Breast cancer Colorectal cancer Social History Smoking Status: Never smoker Tobacco Type: Cigarettes Second Hand Exposure: No; Do You Dip or Chew Tobacco: No; Hx Alcohol Use: No Hx Substance Use: No Preferred Language: Uzbek Communication Ability: Effective Visual Impairment: No Limitations Hearing Ability: Normal Network Associate Required: No Beliefs That Will Affect Care: None marital status: widowe Current Living Situation: Alone Current Living Situation Comment: alone current occupational status: retired Other Information That Helps Us Care for You: No Feels Safe at Home: Yes Safety Concerns: Feels Safe At This Time Childhood Exposure to Second-Hand Smoke: No Dental Care, Regularly: Yes Physical Activity Frequency: 3-4 Times per Week Seatbelt Use: always Sunscreen Use: Yes Assistive Devices: Glasses Review of Systems Review of Systems: See HPI above Physical Exam Physical Exam: General: no acute distress; lethargic; non-toxic appearing; well-nourished; cooperative HEENT: normocephalic, atraumatic; no scleral icterus; left eye patch (recent surgery); moist mucus membrane; vision intact Neck: supple; no lymphadenopathy; trachea midline Skin: warm, dry without signs of tenting; no cyanosis; no rashes, bruising, lesions, or erythema noted CV: chest wall NTP; irregularly irregular rhythm, at 84 bpm; S1/S2 normal; no murmurs/rubs/gallops; pulses intact and symmetric at radial, DP, and PT Lungs: no acute respiratory distress; symmetrical chest wall expansion; clear breath sounds across all lung brambila w/o adventitious sounds; no wheezing ABD: Soft; LLQ TTP; BS present; no rebound/guarding; no ascites; mild distention; no rashes or bruising on the abdomen MSK: no tics or fasciculations; no edema noted in the LEs b/l, nonerythematous Neuro: A&Ox3; normal mood and affect; fluent speech; no focal deficits; sensation grossly intact in the LEs b/l Results & Data Results & Data Vital Signs (Past 12 Hours) Vital Signs Temp Pulse Pulse Resp BP BP Pulse Ox 10/13/23 19:39 84 10/13/23 19:37 94 10/13/23 19:37 77 18 163/66 H 94 10/13/23 16:05 36.7 C 72 20 156/89 H 98 O2 Del Method 10/13/23 19:39 10/13/23 19:37 Room Air 10/13/23 19:37 Room Air 10/13/23 16:05 Laboratory Results Abnormal lab results 10/13/23 10/13/23 Range/Units 17:05 19:23 WBC 15.97 H (4.8-10.8) K/ul RBC 5.74 H (4.20-5.40) M/uL Hgb 17.1 H (12.0-16.0) g/dl Hct 51.1 H (37.0-47.0) % Neut # (Auto) 14.25 H (1.40-6.50) K/uL Lymph # (Auto) 0.55 L (1.20-3.40) K/uL Barbour # (Auto) 1.07 H (0.11-0.59) K/uL Sodium 135 L (136-145) mmol/L Glucose 242 H (70-99(Fasting)) mg/dl Total Bilirubin 1.1 H (0.2-1.0) mg/dl Lipase 8 L (11-82) U/L Ur Specific Star > 1.045 H (1.000-1.030) Urine Protein Trace H (Negative) Urine Glucose (UA) 1+ H (Negative) Urine Ketones 3+ H (Negative) Urine RBC (Auto) 5-10 H (0-4) /hpf U Epithel Cells (Auto) 20-30 H (0-5) /lpf Diagnostic Findings Abdomen/Pelvis CT 10/13/23 16:08 CT SCAN OF THE ABDOMEN AND PELVIS WITH IV CONTRAST CLINICAL HISTORY: Generalized abdominal pain. Vomiting. COMPARISON STUDY: Abdominal CT dated 05/02/2020. TECHNIQUE: Following the IV administration of 91 cc of Optiray 320, CT scan of the abdomen and pelvis is performed from the lung bases to the proximal femora. Images are reviewed in the axial, sagittal, and coronal planes. IV contrast was administered without complication. A dose lowering technique was utilized adhering to the principles of ALARA. CT DOSE: 1413.14 mGy.cm FINDINGS: Lung bases: The heart is normal in size and without pericardial effusion. There are coronary artery calcifications. There is lipomatous hypertrophy of the interatrial septum. There is mild elevation of right hemidiaphragm and bibasilar scarring/atelectasis. No airspace consolidation or pleural effusion is seen. Liver: The contrast-enhanced liver is normal in size, contour, and attenuation. There is no intrahepatic biliary ductal dilatation. The hepatic veins and portal veins are patent. A 3.2 cm minimally complex right lobe cyst is again noted. Gallbladder: Unremarkable. Spleen: Normal in size and attenuation. Pancreas: The pancreas is atrophic. There are at least 2 simple cystic pancreatic lesions measure up to 14 mm. These are typical for sidebranch IPMNs. Adrenal glands: Unremarkable. Kidneys: The contrast enhanced kidneys demonstrate mild cortical atrophy and are without hydronephrosis. The kidneys enhance symmetrically. Abdominal vasculature: The abdominal aorta is normal in course and caliber noting advanced atherosclerotic calcification. Bowel: There is postsurgical change from rectosigmoid resection with colocolonic anastomosis. The small bowel anastomosis is seen in the right lower quadrant. There are distended, fluid-filled, and fecalized loops of small bowel in the central lower abdomen and upper pelvis. These measure up to 4 cm diameter. A focal transition point is seen anteriorly on image #283, and the distal small bowel and colon are decompressed. Findings are consistent with a high-grade small bowel obstruction. There is no pneumatosis intestinalis or portal venous gas. Interloop fluid is observed. No significant bowel wall thickening is identified. The appendix is normal as visualized. Enteroenteric fistulas suggested on 05/02/2020 are not visualized. Peritoneum: There is no intraperitoneal free air or abdominal ascites. A midline surgical scar is noted. A chronic thick-walled fluid collection posterior to the right hepatic lobe below the diaphragm image #93 measures approximately 5.5 x 1 cm Lymphadenopathy: None. Pelvic viscera: The bladder is normal as visualized. The uterus is surgically absent. No adnexal lesion is seen. Skeletal structures: The skeletal structures are osteopenic. There is mild to moderate lumbosacral spondylosis. Sclerotic change is noted in the sacroiliac joints and pubic symphysis. Mild thickening and sclerosis of the left iliac wing is similar to the 2019 examination. No destructive bony lesion is clearly Seen. IMPRESSION: 1. High-grade small bowel obstruction as above. A transition point is located in the ventral upper pelvis, and this is likely on the basis of adhesions. 2. Interloop fluid is observed. There is no obstruction or free air identified. No pneumatosis intestinalis or portal venous gas is seen. 3. A small thick-walled and chronic periventricular collection seen posterior to the right hepatic lobe. This has significantly decreased in size as compared to a fluid collection at this site seen on 05/02/2020. 4. Additional findings as above. ACT 112: Negative or not required by law. Electronically signed by: Tyler Higuera M.D. 10/13/2023 6:47 PM Chest X-Ray 10/13/23 16:08 XR chest 1V portable CLINICAL HISTORY: Abdominal pain, vomiting TECHNIQUE: Single frontal radiograph of the chest was obtained. Comparison: Comparison is made to chest radiograph 10/09/2020 FINDINGS: No lines and tubes are seen. The cardiomediastinal silhouette is normal. The lungs are clear. No evidence of pleural effusion or pneumothorax. IMPRESSION: No acute chest disease. ACT 112: Negative or not required by law. Electronically signed by: Mitchell Castano M.D. 10/13/2023 4:41 PM Supervising Physician Co-Signing Physician Notes Patient seen and examined, chart reviewed, case discussed with LORENZA Shields and I agree with the assessment and plan as above. In brief, patient is a 78yo female with history of bowel resection and hysterectomy presenting with abdominal pain, nausea and vomiting. Symptoms began after eating seafood. Has not had a BM now since 10/11. On exam she is afebrile, hypertensive, NAD. Resting comfortably in bed Skin - intact, no rash HEENT - MMM, Neck supple Heart- +S1/S2, regular, no m/r/g Lungs - no rales/rhonchi/wheezes Abd - diminished bowel sounds, soft, NT/ND Ext - warm, well perfused Labs and images reviewed Patient found to have a high grade SBO with transition point in the ventral upper pelvis thought secondary to adhesions Assessment/Plan - 78yo female presenting with high grade SBO. Presently without pain or nausea, abdomen is non-distended. Does not appear acutely ill -Admit to medical -Maintain NPO -IVF and electrolyte repletion -Pepcid, Tylenol, Zofran -Appreciate surgery assistance -Remainder as above PG Care Time/CCT Total # of Minutes Spent Total Time Spent with Patient: Total time spent is greater than 50% in coordination of care (as documented) at patient's floor/unit and/or counseling patient: Coding [place] [address] INT INP/OBS CARE 2/55MIN Patient Type Established Medical Decision Making Moderate Complexity Diagnoses Bowel obstruction K56.609 Diabetes mellitus E11.9 Paroxysmal A-fib I48.0 HTN (hypertension) I10 History of resection of small bowel Z90.49
--- NOTE | 2023-10-13 20:19 | Surgery Consultation ---
Date of Consultation October 13, 2023 Assessment & Plan (1) Abdominal pain: I discussed with the treating emergency room physician the patient is being admitted on the hospitalist service. From surgery perspective we recommend the following: Implement n.p.o. status Provide IV fluid for hydration Provide analgesics Provide antiemetics Follow serial labs Follow serial abdominal exams I discussed with the patient the use of an NG tube. At the present time patient wishes to proceed without this modality. As the patient does not had any emesis in approximately 10 hours I feel we can hold on this modalityI did discuss with the patient that if she has worsening abdominal pain, clinical det erioration of her abdominal exam, or further emesis we will need to place an NG tube and she expressed her understanding. I did discuss with the patient that most likely cause of her small bowel obs truction is adhesions from her numerous previous abdominal surgeries. I did discuss with her conservative treatment modalities noted above versus surgical intervention. At the present time patient does have a leukocytosis but she is normotensive without tachycardia or fever and her renal function is normal therefore I feel a trial of conservative management is warranted Additional recommendations be forthcoming based on her clinical course as it unfolds (2) Small bowel obstruction: Supervising Physician Co-Signing Physician Notes I personally saw and evaluated the patient with Efrem Holly PA-C and agree with the assessment and plan 78 yo with history of multiple surgeries, here with SBO Admit to medicine CT images and results were personally viewed and interpreted by myself Keep NPO/IVF, no NGT needed currently Will follow History of Present Illness Reason for Consultation: Small bowel obstruction History of Present Illness This is a 78-year-old female who presented to the emergency department secondary to abdominal pain. Patient notes that for approximately last 3 days she has had intermittent nausea and vomiting. The patient did not seek medical attention immediately because she thought she may have had food poisoning. She denies any fevers. She states she has had some loose bowel movements but no aishwarya diarrhea. She did that she has not had a bowel movement now for approximately 24 to 48 hours. She is unsure if she has been passing any flatus. Patient does note that her most recent bout of emesis was at approximate 10:00 AM on 10/13/2023. She reports that she has had multiple abdominal surgeries including a sigmoid colon resection with ileostomy secondary to diverticulitis in 2007, and ileostomy reversal several months after the surgery, a hysterectomy in 2019, and exploratory abdominal surgery secondary to a bowel injury at the time of her hysterectomy. Patient also added that in spite of all the above-noted abdominal surgery she has never suffered a small bowel obstruction in the best of her knowledge. Since arrival to hospital patient has had labs and imaging which I independent reviewed. The patient did undergo a chest x-ray that showed no evidence of pneumonia. She did have a CT scan abdomen pelvis. This showed patient had high-grade small bowel obstruction with a transition point suspected in the upper pelvisthe interpreting radiologist felt this is likely the base of adhesions. There is no interloop fluid, free intraperitoneal air, or pneumatosis intestinalis. Labs include a CBC her white blood cell count is elevated 15.9. Hemoglobin and hematocrit are 17.1 and 51.1. Platelet count is normal. Chemistry profile showed sodium was 135. Normal potassium. BUN and creatinine were both normal. There is no elevation of her LFTs other than a slight elevation of bilirubin at 1.1. Urinalysis was not indicative of infection. Patient was tested for COVID, influenza a and B, as well as RSV all of which were negative. At the time of my interview the patient was resting comfortably in bed and she was in no distress. Allergies Allergy/AdvReac Type Severity Reaction Status Date / Time morphine Allergy Mild ITCHING Verified 10/13/23 07:56 Penicillins Allergy Mild RASH Verified 10/13/23 07:56 tazobactam Allergy Mild RASH Verified 10/13/23 07:56 Home Medications Medication Instructions Recorded Confirmed Type dorzolamide 22.3 mg-timolol 6.8 1 drp OPB BID 11/05/19 10/13/23 History mg/mL eye drops latanoprost 0.005 % eye drops 1 drp OPB QPM 11/05/19 10/13/23 History ascorbate calcium (vitamin C) 500 500 mg PO QAM 11/05/21 10/13/23 History mg tablet blood sugar diagnostic (OneTouch #90 ea 04/01/22 05/16/23 Rx Ultra Test strips) blood-glucose meter (OneTouch #1 ea 04/02/22 05/16/23 Rx Ultra2 Meter kit) cholecalciferol (vitamin D3) 25 25 mcg PO QAM 04/04/22 10/13/23 History mcg (1,000 unit) tablet (Vitamin D3) cyanocobalamin (vitamin B-12) 1,000 mcg PO QAM 07/10/22 10/13/23 History 1,000 mcg tablet (Vitamin B-12) lancets 33 gauge (OneTouch Delica #100 ea 01/28/23 05/16/23 Rx Lancets) blood sugar diagnostic (OneTouch #90 ea 03/13/23 05/16/23 Rx Ultra Test strips) amlodipine 5 mg tablet 5 mg PO QAM #90 tabs 06/04/23 10/13/23 Rx metformin 500 mg tablet,extended 500 mg PO BID #60 tabs 08/29/23 10/13/23 Rx release 24 hr telmisartan 20 mg tablet (Micardis) 20 mg PO QAM 10/07/23 10/13/23 History Patient History Medical History Paroxysmal A-fib hx of 2019--no further issues, 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 History of atrial fibrillation happened after CHELSEA BSO/Bowel Peforation issues @ [facility] [place]--was on blood thinner, taken off after GI Bleed requiring 4 units of PRBCs--pt states she has not had any further issues of A fib since this issue in 2019---pt states she does not follow with a textile engraver at this time History of endometrial cancer (~03/2020) Grade 1 Diabetes mellitus metformin daily Lower extremity edema Bilateral hand swelling Urinary frequency Tendonitis Right wrist pain Intra abdominal hemorrhage hx 2019 Acute upper gastrointestinal bleeding hx of 2019 Small bowel perforation (~04/04/20) happened after CHELSEA BSO @ [facility]--pt had to have a bowel resection DVT (deep venous thrombosis) hx of Osteoarthritis Urinary leakage Diverticular disease Glaucoma PMB (postmenopausal bleeding) Vaginal bleeding HTN (hypertension) Hyperlipidemia no meds Surgical History History of esophagogastroduodenoscopy (EGD) (~04/27/20) @ [facility] d/t bleed--had to receive 4 units PRBCS History of abdominal surgery after CHELSEA BSO @ [facility] 03/30/20 pt had a bowel perforation 04/04/20 and had to have a bowel resection History of dilatation and curettage (~03/2020) History of hysterectomy for cancer (~03/30/20) CHELSEA BSO for Grade 1 endometrial c.a. @ [facility] [place] Slow to wake up after anesthesia History of carpal tunnel release Left History of cervical polypectomy History of colostomy reversal (~2006) History of colostomy after diverticular disease issue 2006 History of bowel resection r/t diverticular disease Family History Father Diabetes Mother Liver cancer Myocardial infarction Other Diverticulitis No family history of adverse response to anesthesia Denies family history of Ovarian cancer Prostate cancer Breast cancer Colorectal cancer Social History Smoking Status: Never smoker Tobacco Type: Cigarettes Second Hand Exposure: No; Do You Dip or Chew Tobacco: No; Hx Alcohol Use: No Hx Substance Use: No Preferred Language: Namibian Communication Ability: Effective Visual Impairment: No Limitations Hearing Ability: Normal Specialized Developer Required: No Beliefs That Will Affect Care: None marital status: widowe Current Living Situation: Alone Current Living Situation Comment: alone current occupational status: retired Other Information That Helps Us Care for You: No Feels Safe at Home: Yes Safety Concerns: Feels Safe At This Time Childhood Exposure to Second-Hand Smoke: No Dental Care, Regularly: Yes Physical Activity Frequency: 3-4 Times per Week Seatbelt Use: always Sunscreen Use: Yes Assistive Devices: None Review of Systems Constitutional: no fever Eyes: + corrective lenses Ear, Nose, Mouth, Throat: no hearing loss Respiratory: no cough Cardiovascular: no chest pain Gastrointestinal: as per Subjective / HPI Genitourinary: no dysuria Musculoskeletal: no back pain Integumentary: no rash Neurologic: no localized weakness Physical Exam Constitutional: WD/WN, vitals as above Eyes: Patient wears corrective lenses. Patient does have an eye patch covering her left eye secondary to recent cataract surgery. ENMT: Ears: no hearing impairment Mouth: no oropharynx abnormality Neck: trachea midline Respiratory: normal respiratory effort; no respiratory distress and no labored breathing Cardiovascular: Rate/Rhythm: regular rate and regular rhythm Gastrointestinal (Abdomen): Abdomen is soft and nonrigid. There is minimal distention. Bowel sounds are present but hypoactive. At the time of my exam patient did have generalized tenderness throughout her abdomen but this. Be greatest to the left of the umbilicus. She did not have any peritoneal signs or rebound tenderness at the time of my exam. Patient did have a well-healed midline incision. She also had a well-healed incision in the right lower quadrant of her abdomen. Musculoskeletal: No calf tenderness Skin: no rashes Neurologic: moves all extremities Psychiatric: A+Ox3, euthymic affect Results & Data Vital Signs (Past 12 Hours) Vital Signs Temp Pulse Pulse Resp BP BP Pulse Ox 10/13/23 19:39 84 10/13/23 19:37 94 10/13/23 19:37 77 18 163/66 H 94 10/13/23 16:05 36.7 C 72 20 156/89 H 98 O2 Del Method 10/13/23 19:39 10/13/23 19:37 Room Air 10/13/23 19:37 Room Air 10/13/23 16:05 PG Care Time/CCT Total # of Minutes Spent Total Time Spent with Patient: Total time spent is greater than 50% in coordination of care (as documented) at patient's floor/unit and/or counseling patient: Coding Level of Care Code 81507 INT INP/OBS CARE 3/75MIN Diagnoses Abdominal pain R10.9 Small bowel obstruction K56.609
[2023-10-13] MEDS ORDERED: fentaNYL citrate PF 100 MCG/2 ML VIAL IV PRN (20:50)
[2023-10-13] MEDS: SODIUM CHLORIDE 0.9% 1,000 ML IV SCH (21:21)
[2023-10-13] MEDS: FAMOTIDINE 20MG IV PUSH 20 MG/5 ML SYR IV STA (21:21)
[2023-10-14] MEDS ORDERED: GLUCOSE 40% GEL 15 GM TUBE PO PRN (00:07)
[2023-10-14] MEDS ORDERED: CARBOHYDRATES FOR HYPOGLYCEMIA PO PRN (00:07)
[2023-10-14] MEDS ORDERED: ACETAMINOPHEN 1,000 MG/100 ML VIAL IV PRN (00:07)
[2023-10-14] MEDS ORDERED: GLUCAGON FOR INJ 1 MG VIAL SQ PRN (00:07)
[2023-10-14] MEDS ORDERED: DEXTROSE 50% 50 ML SYRINGE IV PRN (00:07)
[2023-10-14] MEDS ORDERED: GLUCOSE 10 TAB/TUBE PO PRN (00:07)
[2023-10-14] MEDS: ONDANSETRON INJ 2 MG/ML 2 ML VIAL IV PRN (02:38)
[2023-10-14] MEDS: LACTATED RINGER'S 1,000 ML IV SCH (04:09)
[2023-10-14 05:26] LABS: BUN Creatinine Ratio 17.8 (10-20); Calcium 8.2 mg/dl (8.6-10.3); Est GFR (African American) 91.4 ml/min; Est GFR (Non-African American) 78.9 ml/min; Potassium 3.6 mmol/L (3.5-5.1)
[2023-10-14 05:56] LABS: Basophils # (auto) 0.04 K/uL (0.00-0.20); Basophils % (auto) 0.4 %; Eosinophils # (auto) 0.04 K/uL (0.00-0.50); Eosinophils % (auto) 0.4 %; Hemoglobin 14.2 g/dl (12.0-16.0); Immature Granulocytes # (auto) 0.03 K/uL (0.01-0.20); Immature Granulocytes % (auto) 0.3 %; Lymphocytes # (auto) 0.78 K/uL (1.20-3.40); Lymphocytes % (auto) 7.6 %; Mean Corpuscular Hemoglobin 29.5 pg (25.0-34.0); Mean Corpuscular Volume 89.2 fL (80.0-100.0); Mean Platelet Volume 9.9 fL (9.4-12.4); Monocytes # (auto) 1.61 K/uL (0.11-0.59); Monocytes % (auto) 15.7 %; Neutrophils # (auto) 7.74 K/uL (1.40-6.50); Neutrophils % (auto) 75.6 %; Platelet Count 294 K/uL (130-400); RDW Coefficient of Variation 12.5 % (11.5-14.5); RDW Standard Deviation 40.9 fL (36.4-46.3); Red Blood Count 4.82 M/uL (4.20-5.40); White Blood Count 10.24 K/ul (4.8-10.8)
[2023-10-14] MEDS: FAMOTIDINE 20 MG in SYRINGE 3 ML IV SCH (09:47)
--- NOTE | 2023-10-14 14:29 | Surgery Progress Note ---
Date of Service October 14, 2023 Assessment & Plan (1) Small bowel obstruction: Plan: pt with multiple abdominal surgeries here with abdominal pain and CT scan concerning for SBO generalized abdominal discomfort but worse in the LLQ and R mid abdomen NPO with IVF for today Okay to hold off on NGT unless develops nausea/vomiting Awaiting return of bowel function If not improved by tomorrow we will obtain a small bowel follow through Admission and Anticipated Discharge Date Admission Date: October 13, 2023 Supervising Physician Co-Signing Physician Notes I personally saw and evaluated the patient with Mara Oliva PA-C and agree with the assessment and plan 78 yo with history of multiple surgeries, here with SBO She continues to appear non-toxic, but has no return of bowel function yet Continue NPO/IVF If she is not better by tomorrow, will proceed with a SBFT Will follow Subjective Patient feeling okay. Intermittent pain. No nausea/vomiting. No flatus. Physical Exam Physical Exam: awake/alert, no distress Respiratory: normal respiratory effort Gastrointestinal (Abdomen): Inspection/Auscultation: + abdomen distended and + abdominal surgical scar Percussion/Palpation: + abdomen tender (generalized but worse in R mid and LLQ) and abdomen soft Results & Data Vital Signs (Past 12 Hours) Vital Signs Pulse Pulse Resp BP Pulse Ox O2 Del Method 10/14/23 12:17 73 20 148/88 H 91 Room Air 10/14/23 09:01 81 18 146/83 H 92 Room Air 10/14/23 07:29 86 PG Care Time/CCT Total # of Minutes Spent Total Time Spent with Patient: Total time spent is greater than 50% in coordination of care (as documented) at patient's floor/unit and/or counseling patient: Coding Level of Care Code 56316 SUB INP/OBS CARE 09/25MIN Diagnoses Small bowel obstruction K56.609
[2023-10-14] MEDS: DORZOLAMIDE/TIMOLOL 22.3/6.8MG/ML 10 ML BTL OPB SCH (15:59)
--- NOTE | 2023-10-14 20:07 | Hospitalist Progress Note ---
Date of Service October 14, 2023 Assessment & Plan (1) Bowel obstruction: Plan: Left-sided abdominal pain and vomiting that started on Wednesday 10/11. Likely on basis of adhesions given numerous previous abd surgeries Leukocytosis, afebrile Abdomen/pelvic CT on arrival showed high-grade SBO (likely secondary to adhesions) General surgery consulted; plan is to manage conservatively for now. Pt declined NGT at this time Still no flatus or BM Plan for SBFT tomorrow Continue NPO, IVF hydration follow CBC, BMP Famotidine 20 mg IV QAM Acetaminophen IV as needed for pain Zofran IV as needed for nausea/vomiting (2) Paroxysmal A-fib: Plan: lone afib several years ago I personally reviewed the ECG here and it shows sinus arrhythmia and NOT Afib. Tele thus far also with sinus arrhythmia no anticoagulation needed, no rate control needed follow on tele (3) Diabetes mellitus: Plan: Last A1c at 7.9% on 10/09/2023 Hold metformin BSG q6h while patient is n.p.o. Will hold insulin for now given patient is not currently eating Adjust regimen as needed (4) HTN (hypertension): Plan: Hold telmisartan, amlodipine BPs acceptable (5) History of resection of small bowel: Plan: In 2007 due to diverticulitis (6) H/O cataract removal with insertion of prosthetic lens: Plan: ordered all home eye gtts she is to be taking I spoke with her nurse from the [facility] office Plan Disposition: continued stay on PCU telemetry Full code VTE PPx: SCDs (consider adding chemical DVT ppx for extended stay) Admission and Anticipated Discharge Date Admission Date: October 13, 2023 Subjective Pt denies nausea or vomiting. Reports abd pain is about the same as before but not severe. No flatus and no BM. Tele with sinus arrhythmia, no afib Physical Exam Constitutional: WD/WN, vitals as above Respiratory: normal respiratory effort, lungs clear to auscultation Cardiovascular: RRR, no murmur, no edema Gastrointestinal (Abdomen): Inspection/Auscultation: + abdomen distended (mild) and normal bowel sounds; + abdomen abnormal to inspection (multiple incisional scars) Percussion/Palpation: + abdomen tender (left mid abdomen); no guarding Psychiatric: A+Ox3, euthymic affect Results & Data Results & Data Vital Signs (Past 12 Hours) Vital Signs Temp Pulse Resp BP BP Pulse Ox O2 Del Method 10/14/23 19:23 63 20 95 Room Air 10/14/23 18:40 36.8 C 70 17 115/70 93 Room Air 10/14/23 16:13 74 18 179/88 H 91 Room Air 10/14/23 12:17 73 20 148/88 H 91 Room Air 10/14/23 09:01 81 18 146/83 H 92 Room Air Laboratory Results CBC, BMP reviewed PG Care Time/CCT Total # of Minutes Spent Total Time Spent with Patient: Total time spent is greater than 50% in coordination of care (as documented) at patient's floor/unit and/or counseling patient: Coding Level of Care Code 23597 SUB INP/OBS CARE 2/35MIN Diagnoses Bowel obstruction K56.609 Paroxysmal A-fib I48.0 Diabetes mellitus E11.9 HTN (hypertension) I10 History of resection of small bowel Z90.49 H/O cataract removal with insertion of prosthetic lens Z98.49; Z96.1
[2023-10-14] MEDS: LATANOPROST 0.005% OP SOLN 2.5 ML BTL OPB SCH (21:04)
--- NOTE | 2023-10-15 02:16 | Communication Note ---
Date of Service: October 15, 2023 I was asked by [facility] team to evaluate this patient this evening to determine if patient requires any further abdominal imaging. There is concern on the part of [email or web address] team on 10/14/2023 the patient's small bowel obstruction will not open up and they require surgical intervention. I visited with the patient at the bedside and since admission to the hospital she has not had any nausea or vomiting but she continues to have abdominal pain. Her pain is greatest just to the left of the umbilicus which is similar to what was noted at time of evaluation in the emergency department. She also notes that since admission she is not passing any flatus and has not had a bowel movement. Due to the above findings on evaluation we will re-image the patient's abdomen. Per Dr. Gallagher's request we will obtain a CT scan of the abdomen pelvis with oral and IV contrast. Additional recommendations from surgical team will be pending results of the CT scan. I would like patient CT scan performed around 7:30 AM. I did discuss with the CT scan staff and they note that the oral prep is approximately 2 hours long and therefore I requested that the oral contrast consumption began approximately 5:00 AM this morning.
--- NOTE | 2023-10-15 05:42 | Electrocardiogram Report ---
Test Reason : Blood Pressure : / mmHG Vent. Rate : 075 BPM Atrial Rate : 000 BPM P-R Int : 000 ms QRS Dur : 074 ms QT Int : 384 ms P-R-T Axes : 000 027 046 degrees QTc Int : 428 ms Sinus rhythm with marked sinus arrhythmia Abnormal ECG When compared with ECG of 02-MAY-2020 09:31, Nonspecific T wave abnormality no longer evident in Inferior leads Nonspecific T wave abnormality no longer evident in Lateral leads Confirmed by Alex Gaston ([id number]) on 10/15/2023 5:42:44 AM Referred By: REFERRED SELF Confirmed By:Alex Gaston
[2023-10-15 06:41] LABS: Basophils # (auto) 0.02 K/uL (0.00-0.20); Basophils % (auto) 0.3 %; Eosinophils # (auto) 0.12 K/uL (0.00-0.50); Eosinophils % (auto) 1.7 %; Hematocrit (blood only) 40.2 % (37.0-47.0); Hemoglobin 13.5 g/dl (12.0-16.0); Immature Granulocytes # (auto) 0.01 K/uL (0.01-0.20); Immature Granulocytes % (auto) 0.1 %; Lymphocytes # (auto) 1.52 K/uL (1.20-3.40); Lymphocytes % (auto) 21.2 %; Mean Corpuscular Hemoglobin 30.1 pg (25.0-34.0); Mean Corpuscular Hgb Conc 33.6 g/dL (32.0-36.0); Mean Corpuscular Volume 89.5 fL (80.0-100.0); Monocytes # (auto) 1.04 K/uL (0.11-0.59); Monocytes % (auto) 14.5 %; Neutrophils # (auto) 4.45 K/uL (1.40-6.50); Neutrophils % (auto) 62.2 %; Platelet Count 249 K/uL (130-400); RDW Coefficient of Variation 12.3 % (11.5-14.5); RDW Standard Deviation 40.3 fL (36.4-46.3); Red Blood Count 4.49 M/uL (4.20-5.40); White Blood Count 7.16 K/ul (4.8-10.8)
[2023-10-15] MEDS: OPTIRAY 320 500ml IV ONE (07:59)
--- NOTE | 2023-10-15 08:19 | CT Scan Report ---
CT SCAN OF THE ABDOMEN AND PELVIS WITH IV CONTRAST CLINICAL HISTORY: Small bowel obstruction. COMPARISON STUDY: Prior abdominal CT scans, most recently dated 10/13/2023. TECHNIQUE: Following the IV administration of 85 cc of Optiray 320, CT scan of the abdomen and pelvi s is performed from the lung bases to the proximal femora. Images are reviewed in the axial, sagittal , and coronal planes. IV contrast was administered without complication. Oral contrast was utilized. A dose lowering technique was utilized adhering to the principles of ALARA. CT DOSE: 1499.08 mGy.cm FINDINGS: Lung bases: The heart is top normal in size and without pericardial effusion. There are coronary garrison ry calcifications. There is lipomatous hypertrophy of the interatrial septum. There is mild elevation of right hemidiaphragm and bibasilar scarring/atelectasis. There is trace right pleural effusion. No airspace consolidation is seen. Liver: The contrast-enhanced liver is normal in size, contour, and attenuation. There is no intrahepa tic biliary ductal dilatation. The hepatic veins and portal veins are patent. A 3.2 cm minimally comp davis right lobe cyst is again noted. Gallbladder: Unremarkable. Spleen: Normal in size and attenuation. Pancreas: The pancreas is atrophic. There are at least 2 simple cystic pancreatic lesions measure up to 14 mm. These are typical for sidebranch IPMNs. Adrenal glands: Unremarkable. Kidneys: The contrast enhanced kidneys demonstrate mild cortical atrophy and are without hydronephros is. The kidneys enhance symmetrically. Abdominal vasculature: The abdominal aorta is normal in course and caliber noting advanced atheroscle rotic calcification. Bowel: There is postsurgical change from rectosigmoid resection with colocolonic anastomosis. The sma ll bowel anastomosis is seen in the right lower quadrant. Again seen are numerous distended and fluid -filled loops of small bowel in the central lower abdomen and upper pelvis. These measure up to 4 cm diameter. A focal transition point is again suggested anteriorly on image #286 and the appearance is consistent with a persistent small bowel obstruction. The distal small bowel and colon are relatively decompressed but contain enteric contrast. The small bowel obstruction is likely partial. There is n o pneumatosis intestinalis or portal venous gas. Interloop fluid is observed. No significant bowel wa ll thickening is identified. The appendix is normal as visualized. Peritoneum: There is interloop fluid and trace free fluid in the pelvis. No intraperitoneal free air is identified. A midline surgical scar is noted. A chronic thick-walled fluid collection posterior to the right hepatic lobe below the diaphragm image #92 measures approximately 5.5 x 1 cm Lymphadenopathy: None. Pelvic viscera: The bladder is normal as visualized. The uterus is surgically absent. No adnexal lesi on is seen. Skeletal structures: The skeletal structures are osteopenic. There is mild to moderate lumbosacral sp ondylosis. Sclerotic change is noted in the sacroiliac joints and pubic symphysis. Mild thickening an d sclerosis of the left iliac wing is similar to the 2020 examination. No destructive bony lesion is clearly Seen. IMPRESSION: 1. Again seen is evidence of a small bowel obstruction as detailed above. A transition point is suspe cted in the ventral upper pelvis, and this is likely on the basis of adhesions. 2. Enteric contrast reaches the distal small bowel and colon. Obstruction is likely partial. 3. Interloop fluid is observed. No intraperitoneal free air is identified. There is no pneumatosis in testinalis or portal venous gas. 4. A small thick-walled and chronic appearing fluid collection is again seen posterior to the right h epatic lobe. 5. Additional findings as above. ACT 112: Negative or not required by law. Electronically signed by: Tyler Higuera M.D. 10/15/2023 8:17 AM
[2023-10-15 08:27] LABS: Calcium 8.4 mg/dl (8.6-10.3); Potassium 3.5 mmol/L (3.5-5.1)
[2023-10-15 08:33] LABS: BUN Creatinine Ratio 11.6 (10-20); Creatinine Clr Calc Pharmacy 75.8 ml/min; Est GFR (African American) 96.6 ml/min; Est GFR (Non-African American) 83.4 ml/min
--- NOTE | 2023-10-15 10:33 | Surgery Progress Note ---
Date of Service October 15, 2023 Assessment & Plan (1) Bowel obstruction: Plan: pt reports feeling better than yesterday had bm this am , passing flatus abd pain is 2/[address] scan still showing SBO VSS WBC wnl Will continue conservative treatment at this time Admission and Anticipated Discharge Date Admission Date: October 13, 2023 Supervising Physician Co-Signing Physician Notes I personally saw and evaluated the patient with Iqra MASON and agree with the assessment and plan 78 yo with history of multiple surgeries, here with SBO CT images and results from today were personally viewed and interpreted by myself She has contrast in her colon and had a large BM today If she continues to improve we can trial clears tomorrow No plans for an operation at this point Subjective pt reports feeling better than yesterday had bm this am abd pain is 2/10 discomfort Review of Systems Constitutional: no fever and no chills Respiratory: no dyspnea Cardiovascular: no chest pain Gastrointestinal: + abdominal pain; no nausea and no vomit ing Musculoskeletal: no muscle weakness Physical Exam Physical Exam: alert oriented Constitutional: cooperative and comfortable; no acute distress Respiratory: normal respiratory effort and able to speak in complete sentences; no respiratory distress Cardiovascular: Rate/Rhythm: regular rate Gastrointestinal (Abdomen): Inspection/Auscultation: abdomen not distended Percussion/Palpation: + abdomen tender and abdomen soft Results & Data Vital Signs (Past 12 Hours) Vital Signs Temp Pulse Pulse Resp BP Pulse Ox Pulse Ox 10/15/23 09:48 61 10/15/23 07:35 98.1 F 72 18 138/66 94 10/15/23 04:15 98.1 F 70 20 140/74 96 10/15/23 00:07 94 10/14/23 22:56 97.7 F 70 20 162/84 H 92 O2 Del Method O2 Del Method 10/15/23 09:48 10/15/23 07:35 Room Air 10/15/23 04:15 Room Air 10/15/23 00:07 Room Air 10/14/23 22:56 Room Air Diagnostic Findings [facility], [place] [phone] CT Scan Report Patient: FREDY HELMS Admit Date: 10/13/23 MR#: [id number] Address1: [address] [facility] Acct ID:[id number] Address2: Date: 1945 [facility] Zip: [place] [address] Age: 78 Location: 4W Sex: F Room/Bed: [facility] Att Phy: Genet Navarro MD Diagnosis: ABDOMINAL PAIN, SBO Nieves Phy: Zack Baig MD Service Date: 10/15/23 Fam Phy: Interpreting Phy: Tyler Higuera [facility] Phy: Genesis nAderson D.O. Ordering Phy: Efrem Holly PA-C cc: ~ CT SCAN OF THE ABDOMEN AND PELVIS WITH IV CONTRAST CLINICAL HISTORY: Small bowel obstruction. COMPARISON STUDY: Prior abdominal CT scans, most recently dated 10/13/2023. TECHNIQUE: Following the IV administration of 85 cc of Optiray 320, CT scan of the abdomen and pelvis is performed from the lung bases to the proximal femora. Images are reviewed in the axial, sagittal, and coronal planes. IV contrast was administered without complication. Oral contrast was utilized. A dose lowering technique was utilized adhering to the principles of ALARA. CT DOSE: 1499.08 mGy.cm FINDINGS: Lung bases: The heart is top normal in size and without pericardial effusion. There are coronary artery calcifications. There is lipomatous hypertrophy of the interatrial septum. There is mild elevation of right hemidiaphragm and bibasilar scarring/atelectasis. There is trace right pleural effusion. No airspace consolidation is seen. Liver: The contrast-enhanced liver is normal in size, contour, and attenuation. There is no intrahepatic biliary ductal dilatation. The hepatic veins and portal veins are patent. A 3.2 cm minimally complex right lobe cyst is again noted. Gallbladder: Unremarkable. Spleen: Normal in size and attenuation. Pancreas: The pancreas is atrophic. There are at least 2 simple cystic pancreatic lesions measure up to 14 mm. These are typical for sidebranch IPMNs. Adrenal glands: Unremarkable. Kidneys: The contrast enhanced kidneys demonstrate mild cortical atrophy and are without hydronephrosis. The kidneys enhance symmetrically. Abdominal vasculature: The abdominal aorta is normal in course and caliber noting advanced atherosclerotic calcification. Bowel: There is postsurgical change from rectosigmoid resection with colocolonic anastomosis. The small bowel anastomosis is seen in the right lower quadrant. Again seen are numerous distended and fluid-filled loops of small bowel in the central lower abdomen and upper pelvis. These measure up to 4 cm diameter. A focal transition point is again suggested anteriorly on image #286 and the appearance is consistent with a persistent small bowel obstruction. The distal small bowel and colon are relatively decompressed but contain enteric contrast. The small bowel obstruction is likely partial. There is no pneumatosis intestinalis or portal venous gas. Interloop fluid is observed. No significant bowel wall thickening is identified. The appendix is normal as visualized. Peritoneum: There is interloop fluid and trace free fluid in the pelvis. No intraperitoneal free air is identified. A midline surgical scar is noted. A chronic thick-walled fluid collection posterior to the right hepatic lobe below the diaphragm image #92 measures approximately 5.5 x 1 cm Lymphadenopathy: None. Pelvic viscera: The bladder is normal as visualized. The uterus is surgically absent. No adnexal lesion is seen. Skeletal structures: The skeletal structures are osteopenic. There is mild to moderate lumbosacral spondylosis. Sclerotic change is noted in the sacroiliac joints and pubic symphysis. Mild thickening and sclerosis of the left iliac wing is similar to the 2020 examination. No destructive bony lesion is clearly Seen. IMPRESSION: 1. Again seen is evidence of a small bowel obstruction as detailed above. A transition point is suspected in the ventral upper pelvis, and this is likely on the basis of adhesions. 2. Enteric contrast reaches the distal small bowel and colon. Obstruction is likely partial. 3. Interloop fluid is observed. No intraperitoneal free air is identified. There is no pneumatosis intestinalis or portal venous gas. 4. A small thick-walled and chronic appearing fluid collection is again seen posterior to the right hepatic lobe. 5. Additional findings as above. ACT 112: Negative or not required by law. Electronically signed by: Tyler Higuera M.D. 10/15/2023 8:17 AM Dictated: 10/15/23 08 Transcribed: 10/15/23 08 PG Care Time/CCT Total # of Minutes Spent Total Time Spent with Patient: Total time spent is greater than 50% in coordination of care (as documented) at patient's floor/unit and/or counseling patient: Coding Level of Care Code 55448 SUB INP/OBS CARE 09/25MIN Diagnoses Bowel obstruction K56.609
[2023-10-15] MEDS: MOXIFLOXACIN OP SCH (16:30)
[2023-10-15] MEDS: PREDNISOLONE OP SCH (16:30)
[2023-10-15] MEDS: BROM OP SCH (16:30)
[2023-10-15] MEDS ORDERED: PREDNISOLONE OTL SCH (17:00)
[2023-10-15] MEDS ORDERED: MOXIFLOXACIN OTL SCH (17:00)
[2023-10-15] MEDS ORDERED: BROM OTL SCH (17:00)
--- NOTE | 2023-10-15 19:28 | Hospitalist Progress Note ---
Date of Service October 15, 2023 Assessment & Plan (1) Bowel obstruction: Plan: Left-sided abdominal pain and vomiting that started on Wednesday 10/11. CT with high grade SBO likely on basis of adhesions given numerous previous abd surgeries With Leukocytosis, afebrile General surgery consulted-manage conservatively - Pt declined NGT Had repeat CT abd/pel w/ IV/po contrast on AM of 10/15 which showed SBO but contrast into colon so likely partial SBO now--> shortly afterwards she had a very large BM and abdominal pain is now resolved Continue NPO, IVF hydration but lower rate to 70mL/hr adv diet likely to clears for tomorrow and recommend low fiber diet on disc harge-will consult supervisor sanding at pt's request to discuss low fiber diet and diabetic diet meal plans at home follow CBC, BMP Famotidine 20 mg IV QAM Acetaminophen IV as needed for pain Zofran IV as needed for nausea/vomiting (2) Paroxysmal A-fib: Plan: lone afib several years ago I personally reviewed the ECG here and it shows sinus arrhythmia and NOT Afib. Tele thus far also with sinus arrhythmia no anticoagulation needed, no rate control needed follow on tele (3) Diabetes mellitus: Plan: Last A1c at 7.9% on 10/09/2023 Hold metformin BSG q6h while patient is n.p.o. Will hold insulin for now given patient is not currently eating Adjust regimen as needed (4) HTN (hypertension): Plan: Hold telmisartan, amlodipine BPs now elevated-hydralazine prn can be given and resume po meds tomorrow if taking po (5) History of resection of small bowel: Plan: In 2007 due to diverticulitis (6) H/O cataract removal with insertion of prosthetic lens: Plan: ordered all home eye gtts she is to be taking I spoke with her nurse from the Chief Port Director's office Plan Disposition: continued stay on PCU telemetry Full code VTE PPx: SCDs (consider adding chemical DVT ppx for extended stay) Admission and Anticipated Discharge Date Admission Date: October 13, 2023 Subjective Pt had a large BM today, no further abdominal pain now, no nausea. Has been ambulating. Tele with NSR, PACs, sinus arrhythmia Physical Exam Constitutional: WD/WN, vitals as above Respiratory: normal respiratory effort, lungs clear to auscultation Cardiovascular: RRR, no murmur, no edema Gastrointestinal (Abdomen): Inspection/Auscultation: abdomen normal to inspection (multiple incisional scars) and normal bowel sounds; abdomen not distended Percussion/Palpation: abdomen soft; abdomen nontender and no guarding Psychiatric: A+Ox3, euthymic affect Results & Data Results & Data Vital Signs (Past 12 Hours) Vital Signs Temp Pulse Pulse Resp BP BP Pulse Ox 10/15/23 16:42 60 10/15/23 16:13 36.2 C L 62 19 128/79 95 10/15/23 11:18 36.5 C 56 L 18 144/69 H 93 10/15/23 09:48 61 10/15/23 07:35 36.7 C 72 18 138/66 94 O2 Del Method 10/15/23 16:42 10/15/23 16:13 Room Air 10/15/23 11:18 Room Air 10/15/23 09:48 10/15/23 07:35 Room Air Laboratory Results CBC, BMP reviewed PG Care Time/CCT Total # of Minutes Spent Total Time Spent with Patient: Total time spent is greater than 50% in coordination of care (as documented) at patient's floor/unit and/or counseling patient: Coding Level of Care Code 38362 SUB INP/OBS CARE 2/35MIN Diagnoses Bowel obstruction K56.609 Paroxysmal A-fib I48.0 Diabetes mellitus E11.9 HTN (hypertension) I10 History of resection of small bowel Z90.49 H/O cataract removal with insertion of prosthetic lens Z98.49; Z96.1
[2023-10-15] MEDS ORDERED: hydrALAZINE HCL 20 MG/ML VIAL IV PRN (21:09)
[2023-10-16 06:37] LABS: Basophils # (auto) 0.03 K/uL (0.00-0.20); Basophils % (auto) 0.4 %; Eosinophils # (auto) 0.12 K/uL (0.00-0.50); Eosinophils % (auto) 1.6 %; Hemoglobin 13.3 g/dl (12.0-16.0); Immature Granulocytes # (auto) 0.03 K/uL (0.01-0.20); Immature Granulocytes % (auto) 0.4 %; Lymphocytes # (auto) 1.82 K/uL (1.20-3.40); Lymphocytes % (auto) 24.1 %; Mean Corpuscular Hgb Conc 33.3 g/dL (32.0-36.0); Mean Corpuscular Volume 90.3 fL (80.0-100.0); Monocytes # (auto) 0.95 K/uL (0.11-0.59); Monocytes % (auto) 12.6 %; Neutrophils # (auto) 4.59 K/uL (1.40-6.50); Neutrophils % (auto) 60.9 %; Platelet Count 260 K/uL (130-400); RDW Coefficient of Variation 12.2 % (11.5-14.5); RDW Standard Deviation 40.4 fL (36.4-46.3); Red Blood Count 4.43 M/uL (4.20-5.40); White Blood Count 7.54 K/ul (4.8-10.8)
[2023-10-16 07:01] LABS: BUN Creatinine Ratio 10.5 (10-20); Calcium 8.3 mg/dl (8.6-10.3); Creatinine Clr Calc Pharmacy 68.4 ml/min; Est GFR (African American) 87.1 ml/min; Est GFR (Non-African American) 75.1 ml/min; Magnesium 1.9 mg/dl (1.7-2.4); Potassium 3.5 mmol/L (3.5-5.1)
--- NOTE | 2023-10-16 11:00 | Hospitalist Progress Note ---
Date of Service October 16, 2023 Assessment & Plan (1) Bowel obstruction: Plan: Left-sided abdominal pain and vomiting that started on Wednesday 10/11. CT with high grade SBO likely on basis of adhesions given numerous previous abd surgeries With Leukocytosis on admission now resolved, remains afebrile General surgery consulted-manage conservatively - Pt declined NGT Had repeat CT abd/pel w/ IV/po contrast on AM of 10/15 which showed SBO but contrast into colon so likely partial SBO now--> shortly afterwards she had a very large BM and abdominal pain is now resolved Continues to move bowels, no pain or nausea on 10/16 Adv diet to clears -dc IVFs after this bag -recommend low fiber diet on discharge-will consult tandem mill roller at pt's request to discuss low fiber diet and diabetic diet meal plans at home -follow CBC, BMP, mag -dc Famotidine 20 mg IV QAM -change Acetaminophen IV to po as needed for pain -Zofran IV as needed for nausea/vomiting (2) Paroxysmal A-fib: Plan: lone afib several years ago I personally reviewed the ECG here and it shows sinus arrhythmia and NOT Afib. Tele thus far also with sinus arrhythmia no anticoagulation needed, no rate control needed downgrade off tele (3) Diabetes mellitus: Plan: Last A1c at 7.9% on 10/09/2023 Hold metformin change BSG to qachs add on supplemental Novolog now that diet ordered Adjust regimen as needed (4) HTN (hypertension): Plan: BPs rising off meds from home resume home telmisartan, amlodipine now that taking po (5) History of resection of small bowel: Plan: In 2007 due to diverticulitis (6) H/O cataract removal with insertion of prosthetic lens: Plan: ordered all home eye gtts she is to be taking I spoke with her nurse from the Machine [employer]ision Etcher's office Plan Disposition: continued stay but downgrade to med/surg, improving, likely dc to home tomorrow after advance to low fiber diet Full code VTE PPx: SCDs Admission and Anticipated Discharge Date Admission Date: October 13, 2023 Subjective had another small BM this AM, passing flatus, no abd pain, no nausea. No lightheadedness or CP, SOB is OOB and ambulating halls Tele with sinua arrhythmia, normal rates Physical Exam Constitutional: WD/WN, vitals as above Respiratory: normal respiratory effort, lungs clear to auscultation Cardiovascular: RRR, no murmur, no edema Gastrointestinal (Abdomen): Inspection/Auscultation: abdomen normal to inspection (multiple incisional scars) and normal bowel sounds; abdomen not distended Percussion/Palpation: abdomen soft; abdomen nontender and no guarding Psychiatric: A+Ox3, euthymic affect Results & Data Results & Data Vital Signs (Past 12 Hours) Vital Signs Temp Pulse Pulse Resp BP Pulse Ox Pulse Ox 10/16/23 07:43 36.6 C 68 19 143/78 H 94 10/16/23 07:39 63 10/16/23 06:29 64 152/84 H 10/16/23 03:00 36.4 C L 53 L 19 159/85 H 95 10/16/23 00:07 57 L 164/67 H 10/16/23 00:00 93 10/15/23 23:59 53 L O2 Del Method O2 Del Method 10/16/23 07:43 Room Air 10/16/23 07:39 10/16/23 06:29 10/16/23 03:00 Room Air 10/16/23 00:07 10/16/23 00:00 Room Air 10/15/23 23:59 Laboratory Results CBC, BMP reviewed PG Care Time/CCT Total # of Minutes Spent Total Time Spent with Patient: Total time spent is greater than 50% in coordination of care (as documented) at patient's floor/unit and/or counseling patient: Coding Level of Care Code 00086 SUB INP/OBS CARE 2/35MIN Diagnoses Bowel obstruction K56.609 Paroxysmal A-fib I48.0 Diabetes mellitus E11.9 HTN (hypertension) I10 History of resection of small bowel Z90.49 H/O cataract removal with insertion of prosthetic lens Z98.49; Z96.1
--- NOTE | 2023-10-16 11:49 | Surgery Progress Note ---
Date of Service October 16, 2023 Assessment & Plan (1) Small bowel obstruction: Plan: Start clears today Continue to monitor for any worsening abdominal exam She seems to be resolving nicely Admission and Anticipated Discharge Date Admission Date: October 13, 2023 Subjective Pt seen and examined. Abdominal pain resolved. No N/V. Had another BM and is passing flatus. Afebrile. Review of Systems Constitutional: no fever and no chills Physical Exam Constitutional: WD/WN, vitals as above Gastrointestinal (Abdomen): Inspection/Auscultation: abdomen normal to inspection; abdomen not distended Percussion/Palpation: abdomen soft; abdomen nontender and no guarding Results & Data Vital Signs (Past 12 Hours) Vital Signs Temp Pulse Pulse Resp BP Pulse Ox Pulse Ox 10/16/23 07:43 36.6 C 68 19 143/78 H 94 10/16/23 07:39 63 10/16/23 06:29 64 152/84 H 10/16/23 03:00 36.4 C L 53 L 19 159/85 H 95 10/16/23 00:07 57 L 164/67 H 10/16/23 00:00 93 10/15/23 23:59 53 L O2 Del Method O2 Del Method 10/16/23 07:43 Room Air 10/16/23 07:39 10/16/23 06:29 10/16/23 03:00 Room Air 10/16/23 00:07 10/16/23 00:00 Room Air 10/15/23 23:59 PG Care Time/CCT Total # of Minutes Spent Total Time Spent with Patient: Total time spent is greater than 50% in coordination of care (as documented) at patient's floor/unit and/or counseling patient: Coding Level of Care Code 16631 SUB INP/OBS CARE 09/25MIN Diagnoses Small bowel obstruction K56.609
[2023-10-16] MEDS: INSULIN ASPART PER UNIT CHARGE SC SCH (12:41)
[2023-10-16] MEDS ORDERED: ACETAMINOPHEN 325 MG TAB PO PRN (13:42)
[2023-10-16] MEDS: amLODIPine BESYLATE 5 MG TAB PO SCH (14:03)
[2023-10-16] MEDS: LOSARTAN POTASSIUM 25 MG TAB PO SCH (14:03)
--- NOTE | 2023-10-17 07:58 | Surgery Progress Note ---
Date of Service October 17, 2023 Assessment & Plan (1) Small bowel obstruction: Plan: Patient here with SBO Appears to be resolving with conservative measures denies pain, nausea/vomiting. she is passing flatus and some loose stools tolerating clears, will advance to fulls and may continue to adv diet as tolerates [facility] covering the wknd if any questions/concerns as above. had full liquids for lunch. doing fine. will slowly advance diet. d/c planning Admission and Anticipated Discharge Date Admission Date: October 13, 2023 Subjective Patient reports feeling fairly well. Denies abdominal pain, nausea/vomiting. + flatus and some loose stools noted. Tolerating clears. Having some issues with urinary incontinence while here Physical Exam Physical Exam: awake/alert, no distress Gastrointestinal (Abdomen): Inspection/Auscultation: abdomen not distended Percussion/Palpation: abdomen soft; abdomen nontender Results & Data Vital Signs (Past 12 Hours) Vital Signs Temp Pulse Resp BP Pulse Ox Pulse Ox O2 Del Method 10/16/23 21:50 Room Air 10/16/23 21:50 94 10/16/23 20:47 98.4 F 58 L 18 159/78 H 94 Room Air O2 Del Method 10/16/23 21:50 10/16/23 21:50 Room Air 10/16/23 20:47 PG Care Time/CCT Total # of Minutes Spent Total Time Spent with Patient: Total time spent is greater than 50% in coordination of care (as documented) at patient's floor/unit and/or counseling patient: Coding Level of Care Code 56405 SUB INP/OBS CARE 09/25MIN Diagnoses Small bowel obstruction K56.609
[2023-10-17 08:41] LABS: Basophils # (auto) 0.02 K/uL (0.00-0.20); Basophils % (auto) 0.2 %; Eosinophils # (auto) 0.08 K/uL (0.00-0.50); Hemoglobin 14.9 g/dl (12.0-16.0); Immature Granulocytes # (auto) 0.04 K/uL (0.01-0.20); Immature Granulocytes % (auto) 0.5 %; Lymphocytes # (auto) 1.16 K/uL (1.20-3.40); Lymphocytes % (auto) 14.1 %; Mean Corpuscular Hemoglobin 29.6 pg (25.0-34.0); Mean Corpuscular Hgb Conc 33.1 g/dL (32.0-36.0); Mean Corpuscular Volume 89.3 fL (80.0-100.0); Mean Platelet Volume 9.8 fL (9.4-12.4); Monocytes # (auto) 0.88 K/uL (0.11-0.59); Monocytes % (auto) 10.7 %; Neutrophils # (auto) 6.05 K/uL (1.40-6.50); Neutrophils % (auto) 73.5 %; Platelet Count 297 K/uL (130-400); RDW Coefficient of Variation 12.4 % (11.5-14.5); RDW Standard Deviation 40.3 fL (36.4-46.3); Red Blood Count 5.04 M/uL (4.20-5.40); White Blood Count 8.23 K/ul (4.8-10.8)
[2023-10-17 08:53] LABS: Calcium 8.7 mg/dl (8.6-10.3); Creatinine Clr Calc Pharmacy 66.8 ml/min; Est GFR (African American) 84.4 ml/min; Est GFR (Non-African American) 72.8 ml/min; Magnesium 2.1 mg/dl (1.7-2.4); Phosphorus 3.5 mg/dl (2.5-4.9); Potassium 3.4 mmol/L (3.5-5.1)
[2023-10-17] MEDS: POTASSIUM CHLORIDE CRTAB 20 MEQ TABCR PO STA (12:02)
--- NOTE | 2023-10-17 14:33 | Hospitalist Progress Note ---
Date of Service October 17, 2023 Assessment & Plan (1) Bowel obstruction: Plan: Left-sided abdominal pain and vomiting that started on Wednesday 10/11. CT with high grade SBO likely on basis of adhesions given numerous previous abd surgeries With Leukocytosis on admission now resolved, remains afebrile General surgery consulted-manage conservatively - Pt declined NGT Had repeat CT abd/pel w/ IV/po contrast on AM of 10/15 which showed SBO but contrast into colon so likely partial SBO --> shortly afterwards she had a very large BM and abdominal pain is now resolved Continues to move bowels, no pain or nausea, now advanced to full liquids by Surgery and tolerating Adv diet to low fiber for dinner recommend low fiber diet on discharge-will consult blown film extrusion operator at pt's request to discuss low fiber diet and diabetic diet meal plans at home-will ask blown film extrusion operator to come back around for further education today as she is still unclear on what she can eat follow CBC, BMP, mag-replace K+ today (2) Paroxysmal A-fib: Plan: lone afib several years ago I personally reviewed the ECG here and it shows sinus arrhythmia and NOT Afib. Tele thus far also with sinus arrhythmia no anticoagulation needed, no rate control needed downgraded off tele (3) Diabetes mellitus: Plan: Last A1c at 7.9% on 10/09/2023 Hold metformin BSG qachs Supplemental Novolog now that diet ordered Adjust regimen as needed (4) HTN (hypertension): Plan: BPs normal continue home telmisartan, amlodipine (5) History of resection of small bowel: Plan: In 2007 due to diverticulitis (6) H/O cataract removal with insertion of prosthetic lens: Plan: ordered all home eye gtts she is to be taking I spoke with her nurse from the Director Strategy's office Plan Disposition: continued stay med/surg, improving, likely dc to home tomorrow if tolerating low fiber diet Full code VTE PPx: SCDs Admission and Anticipated Discharge Date Admission Date: October 13, 2023 Subjective Pt had two BMs today, passing flatus, no abd pain, no nausea, randi full liquids diet for lunch. Is very anxious about returning home without knowing exactly what she should eat at home. I will ask Commanding Officer Traffic Division to come back around. Physical Exam Constitutional: WD/WN, vitals as above Respiratory: normal respiratory effort, lungs clear to auscultation Cardiovascular: RRR, no murmur, no edema Gastrointestinal (Abdomen): Inspection/Auscultation: abdomen normal to inspection (multiple incisional scars) and normal bowel sounds; abdomen not distended Percussion/Palpation: abdomen soft; abdomen nontender and no guarding Psychiatric: Orientation: alert and oriented x 3 Mood: + anxious mood Results & Data Results & Data Vital Signs (Past 12 Hours) Vital Signs Temp Pulse Resp BP Pulse Ox O2 Del Method 10/17/23 08:16 37.4 C 58 L 16 136/79 94 Room Air Laboratory Results CBC, BMP, magnesium reviewed PG Care Time/CCT Total # of Minutes Spent Total Time Spent with Patient: Total time spent is greater than 50% in coordination of care (as documented) at patient's floor/unit and/or counseling patient: Coding Level of Care Code 23704 SUB INP/OBS CARE 2/35MIN Diagnoses Bowel obstruction K56.609 Paroxysmal A-fib I48.0 Diabetes mellitus E11.9 HTN (hypertension) I10 History of resection of small bowel Z90.49 H/O cataract removal with insertion of prosthetic lens Z98.49; Z96.1
[2023-10-18 06:25] LABS: Basophils # (auto) 0.03 K/uL (0.00-0.20); Basophils % (auto) 0.4 %; Eosinophils # (auto) 0.11 K/uL (0.00-0.50); Eosinophils % (auto) 1.3 %; Hematocrit (blood only) 40.2 % (37.0-47.0); Hemoglobin 13.8 g/dl (12.0-16.0); Immature Granulocytes # (auto) 0.04 K/uL (0.01-0.20); Immature Granulocytes % (auto) 0.5 %; Mean Corpuscular Hemoglobin 29.9 pg (25.0-34.0); Mean Corpuscular Hgb Conc 34.3 g/dL (32.0-36.0); Mean Platelet Volume 9.9 fL (9.4-12.4); Monocytes # (auto) 1.04 K/uL (0.11-0.59); Monocytes % (auto) 12.4 %; Neutrophils # (auto) 5.58 K/uL (1.40-6.50); Neutrophils % (auto) 66.4 %; Platelet Count 271 K/uL (130-400); RDW Coefficient of Variation 12.3 % (11.5-14.5); RDW Standard Deviation 39.3 fL (36.4-46.3); Red Blood Count 4.62 M/uL (4.20-5.40)
[2023-10-18 06:38] LABS: BUN Creatinine Ratio 9.4 (10-20); Calcium 8.2 mg/dl (8.6-10.3); Creatinine Clr Calc Pharmacy 61.3 ml/min; Est GFR (African American) 76.1 ml/min; Est GFR (Non-African American) 65.6 ml/min; Potassium 3.4 mmol/L (3.5-5.1)
[2023-10-18] MEDS: POTASSIUM CHLORIDE CRTAB 20 MEQ TABCR PO STA (11:21)
--- NOTE | 2023-10-18 12:48 | Discharge Summary ---
Discharge Summary Date of Service October 18, 2023 Notes For Next Care Provider Medication Changes From Visit None Admission HPI Per Admitting Provider Candy is a 78-year-old female with PMH of HTN, HLD, diabetes, endometrial cancer, and vitamin B12 deficiency. She presented for left-sided abdominal pain and vomiting that started after eating seafood on Wednesday 10/11. She endorses fever, sweating, and vomiting Friday night, as well as left-sided abdominal pain that has been ongoing since that time. She last vomited the morning of 10/13. Last BM was 10/11, however she reports that it was mainly leakage, diarrhea. Patient reports she is still passing gas. Of note, the patient had cataract eye surgery on her left eye this morning on 10/13. Patient only took her blood pressure medications this morning (amlodipine and telmisartan). She endorses central/LLQ abdominal pain that is 4/10 at present. No radiation. She has not been taking pain medication at home. She is unsure if it is worse with movement or different positions. She reports she may have had atrial fibrillation in the past when she was at [facility] for a hysterectomy (2019), however she was not placed on blood thinners and has never had follow-up for this. She denies recent alcohol use, smoking, and tobacco use. Surgical history includes a small bowel obstruction due to diverticulitis in 2007, as well as a hysterectomy in 2019 that involved a complication due to nicking (which required a second surgery). Patient is status post reverse ileostomy. Patient is hypertensive at 163/66 at time of admission; vitals otherwise stable. ED course: Acetaminophen 1000 mg IV x2 Famotidine 20 mg IV Zofran 4 mg IV NSS 1500 mL IV ROS: Patient endorses fever/sweating (which resolved on Friday), left-sided abdominal pain, nausea, and vomiting. Patient denies body aches, dizziness, lightheadedness, headache, chest pain, cough, pleuritic CP, hematemesis, blood in the urine or stool, dysuria, urinary retention, burning with urination, and numbness/tingling/pain in the arms or legs. Principal Dx & Hospital Course #1 = Principal Diagnosis (1) Bowel obstruction: Left-sided abdominal pain and vomiting that started on Wednesday 10/11. CT with high grade SBO likely on basis of adhesions given numerous previous abd surgeries With Leukocytosis on admission now resolved, remains afebrile General surgery consulted-manage conservatively - Pt declined NGT Had repeat CT abd/pel w/ IV/po contrast on AM of 10/15 which showed SBO but contrast into colon so likely partial SBO --> shortly afterwards she had a very large BM and abdominal pain is now resolved Continues to move bowels, no pain or nausea, tolerating low fiber diet Continues to move bowels daily, doing very well recommend low fiber diet on discharge for at least several weeks, drink plenty of fluids, and exercise by walking to keep bowels moving at least 2x/day consulted coal screener at pt's request to discuss low fiber diet and diabetic diet meal plans at home (2) Paroxysmal A-fib: lone afib several years ago I personally reviewed the ECG here and it shows sinus arrhythmia and NOT Afib. Tele thus far also with sinus arrhythmia no anticoagulation needed, no rate control needed downgraded off tele (3) Diabetes mellitus: Last A1c at 7.9% on 10/09/2023 resume home metformin (4) HTN (hypertension): BPs normal continue home telmisartan, amlodipine (5) History of resection of small bowel: In 2007 due to diverticulitis (6) H/O cataract removal with insertion of prosthetic lens: ordered all home eye gtts she is to be taking I spoke with her nurse from the [facility] f/u with Ophtho after discharge Plan Disposition: dc to home Full code VTE PPx: SCDs Discharge Exam Constitutional WD/WN, vitals as above Respiratory normal respiratory effort, lungs clear to auscultation Cardiovascular RRR, no murmur, no edema Gastrointestinal (Abdomen) Inspection/Auscultation: normal bowel sounds; abdomen not distended Percussion/Palpation: abdomen soft; abdomen nontender and no guarding Psychiatric A+Ox3, euthymic affect Updated Medication List Medication Instructions Recorded Confirmed Type dorzolamide 22.3 mg-timolol 6.8 1 drp OPB BID 11/05/19 10/13/23 History mg/mL eye drops latanoprost 0.005 % eye drops 1 drp OPB QPM 11/05/19 10/13/23 History ascorbate calcium (vitamin C) 500 500 mg PO QAM 11/05/21 10/13/23 History mg tablet blood sugar diagnostic (OneTouch #90 ea 04/01/22 05/16/23 Rx Ultra Test strips) blood-glucose meter (OneTouch #1 ea 04/02/22 05/16/23 Rx Ultra2 Meter kit) cholecalciferol (vitamin D3) 25 25 mcg PO QAM 04/04/22 10/13/23 History mcg (1,000 unit) tablet (Vitamin D3) cyanocobalamin (vitamin B-12) 1,000 mcg PO QAM 07/10/22 10/13/23 History 1,000 mcg tablet (Vitamin B-12) lancets 33 gauge (OneTouch Delica #100 ea 01/28/23 05/16/23 Rx Lancets) blood sugar diagnostic (OneTouch #90 ea 03/13/23 05/16/23 Rx Ultra Test strips) amlodipine 5 mg tablet 5 mg PO QAM #90 tabs 06/04/23 10/13/23 Rx metformin 500 mg tablet,extended 500 mg PO BID #60 tabs 08/29/23 10/13/23 Rx release 24 hr telmisartan 20 mg tablet (Micardis) 20 mg PO QAM 10/07/23 10/13/23 History Hospital Stay Data Consultations 10/13/23 20:01 ED Decision to Admit Stat 10/14/23 00:07 Consult General Surgery Routine Diagnostic Imagining Performed 10/13/23 16:08 CT abd pelvis IV con only Stat 10/15/23 07:30 CT abd pelvis oral and IV con Stat Pending Results Patient Have Any Pending Studies at Discharge: No Discharge Instructions Given to Patient (Per Discharging Provider) You were admitted with a bowel blockage related to scar tissue (adhesions) from your prior surgeries. This resolved on its own. Please make sure you are drinking plenty of fluids and moving your bowels at least twice a day. get frequent exercise such as walking in to also help keep your bowels moving along. Avoid high fiber foods to ensure your stool doesn't become bulky which would make passing your bowels more difficult. If you have a recurrence of significant abdominal pain, nausea/vomiting, please return to the ER. Otherwise, if you have any concerns or questions, please call Dr. Baig's office. Total Time Total Time Spent Total Time Spent (In Minutes): 35 min Coding Level of Care Code 99994 INP/OBS DISCH >30 MIN Diagnoses Bowel obstruction K56.609 Paroxysmal A-fib I48.0 Diabetes mellitus E11.9 HTN (hypertension) I10 History of resection of small bowel Z90.49 H/O cataract removal with insertion of prosthetic lens Z98.49; Z96.1
== END 2023-10-18 14:56 | disposition home or self-care (01) | DRG 390 ==
LOC: ED 15:53 → SUATTDRO 20:50 → EDINP 20:50 → 4W 10-14 00:06 → 3E 10-16 13:42